=== PATIENT | female | born 1975 | race African-American/Black ===

== ENCOUNTER 2023-06-17 18:51 | Emergency (ER) | payer OTHER ==
[2023-06-17 19:30] VITALS: TEMP 97.8
--- NOTE | 2023-06-17 19:45 | ED ---
Altered Mental Status HPI - General Chief Complaint: Extremity Injury, Lower Stated Complaint: left side hip pain memory loss shaking Time Seen by Provider: 06/17/23 19:19 Source: patient, RN notes reviewed, old records reviewed Mode of arrival: ambulatory Limitations: no limitations - History of Present Illness Initial Comments: This is a 47-year-old female to the ER for evaluation today. [place] evaluation regards to confusion difficulty with mentation remembering things both of recent and distant past short-term and long-term memory difficulty with speech and cannot communicate communication. Patient has history of seizures and recently ran out of Nelly ZIMMERMAN Complaint: altered mental status -: month(s) Severity: moderate Consistency of Symptoms: waxing and waning, getting worse Context: history of similar presentation Associated Symptoms: denies other symptoms Treatments Prior to Arrival: oxygen - Related Data Previous Rx's Medication Instructions Recorded levETIRAcetam [Keppra] 500 mg PO Q12HR #60 tab 06/17/23 Allergies Allergy/AdvReac Type Severity Reaction Status Date / Time No Known Allergies Allergy Verified 06/17/23 20:13 Review of Systems ROS Statement: Those systems with pertinent positive or pertinent negative responses have been documented in the HPI. ROS Other: All systems not noted in ROS Statement are negative. Past Medical History Past Medical History: Asthma, Seizure Disorder Additional Past Medical History / Comment(s): seizure-like activity, no known 'actual' seizures, "blackouts", History of Any Multi-Drug Resistant Organisms: None Reported Past Surgical History: Coronary Bypass/CABG, Hernia Repair, Orthopedic Surgery Additional Past Surgical History / Comment(s): bunion removed, left ankle, left toe, rotator cuff repair, right shoulder, Past Psychological History: No Psychological Hx Reported Smoking Status: Former smoker Past Alcohol Use History: None Reported Past Drug Use History: None Reported General Exam Limitations: no limitations General appearance: alert, in no apparent distress Head exam: Present: atraumatic, normocephalic, normal inspection Eye exam: Present: normal appearance, PERRL, EOMI. Absent: scleral icterus, conjunctival injection, periorbital swelling ENT exam: Present: normal exam, mucous membranes moist Neck exam: Present: normal inspection. Absent: tenderness, meningismus, lymphadenopathy Respiratory exam: Present: normal lung sounds bilaterally. Absent: respiratory distress, wheezes, rales, rhonchi, stridor Cardiovascular Exam: Present: regular rate, normal rhythm, normal heart sounds. Absent: systolic murmur, diastolic murmur, rubs, gallop, clicks GI/Abdominal exam: Present: soft, normal bowel sounds. Absent: distended, tenderness, guarding, rebound, rigid Extremities exam: Present: normal inspection, full ROM, normal capillary refill. Absent: tenderness, pedal edema, joint swelling, calf tenderness Back exam: Present: normal inspection Neurological exam: Present: alert, oriented X3, CN II-XII intact Psychiatric exam: Present: normal affect, normal mood Skin exam: Present: warm, dry, intact, normal color. Absent: rash Course Vital Signs 06/17/23 06/17/23 18:58 22:27 Temperature 97.8 F Pulse Rate 98 70 Respiratory 18 16 Rate Blood Pressure 131/87 139/96 O2 Sat by Pulse 98 99 Oximetry - Reevaluation(s) Reevaluation #1: 06/17/23 20:08 Medical records reviewed Reevaluation #2: 06/17/23 20:08 Patient symptoms unchanged Reevaluation #3: 06/17/23 20:08 Patient informed of results questions answered Reevaluation #4: Was pt. sent in by a medical professional or institution (, PA, ENTRY LEVEL ACCOUNT REPRESENTATIVE, urgent care, hospital, or detention...) When possible be specific @ -no Did you speak to anyone other than the patient for history (EMS, parent, family, police, friend...)? What history was obtained from this source @ -no Did you review nursing and triage notes (agree or disagree)? Why? @ -agree Are old charts reviewed (outside hosp., previous admission, EMS record, old EKG, old radiological studies, urgent care reports/EKG's, detention records)? Report findings @ -yes Differential Diagnosis (chest pain, altered mental status, abdominal pain women, abdominal pain men, vaginal bleeding, weakness, fever, dyspnea, syncope, headache, dizziness, GI bleed, back pain, seizure, CVA, palpatations, mental h ealth, musculoskeletal)? @ -prior EKG interpreted by me (3pts min.). @ -yes X-rays interpreted by me (1pt min.). @ -no CT interpreted by me (1pt min.). @ -yes negative for acute disease U/S interpreted by me (1pt. min.). @ -no What testing was considered but not performed or refused? (CT, X-rays, U/S, labs)? Why? @ -none What meds were considered but not given or refused? Why? @ -none Did you discuss the management of the patient with other professionals (professionals i.e. , PA, ENTRY LEVEL ACCOUNT REPRESENTATIVE, lab, RT, psych nurse, social services coordinator, lifeguard, teacher, correctional officer captain, rehabilitation case coordinator)? Give summary @ -no Was smoking cessation discussed for >3mins.? @ -no Was critical care preformed (if so, how long)? @ -no Were there social determinants of health that impacted care today? How? (Homelessness, low income, unemployed, alcoholism, drug addiction, transportation, low edu. Level, literacy, decrease access to med. care, senior care, rehab)? @ -none Was there de-escalation of care discussed even if they declined (Discuss DNR or withdrawal of care, Hospice)? DNR status @ -no What co-morbidities impacted this encounter? (DM, HTN, Smoking, COPD, CAD, Cancer, CVA, ARF, Chemo, Hep., AIDS, mental health diagnosis, sleep apnea, morbid obesity)? @ -none Was patient admitted / discharged? Hospital course, mention meds given and route, prescriptions, significant lab abnormalities, going to OR and other p ertinent info. @ - 47 female for altered mental status with no acute cause found. Patient acting appropriate here in the ER and can be discharged home\\ Discharged Undiagnosed new problem with uncertain prognosis? @ -no Drug Therapy requiring intensive monitoring for toxicity (Heparin, Nitro, Insu trina, Cardizem)? @ -no Were any procedures done? @ -no Diagnosis/symptom? @ -Altered mental status Acute, or Chronic, or Acute on Chronic? @ -Acute Uncomplicated (without systemic symptoms) or Complicated (systemic symptoms)? @ -Complicated Side effects of treatment? @ -no Exacerbation, Progression, or Severe Exacerbation? @ -exacerbation Poses a threat to life or bodily function? How? (Chest pain, [place], [place], pneumonia, PE, COPD, DKA, ARF, appy, cholecystitis, CVA, Diverticulitis, Homicidal, Suicidal, threat to staff... and all critical care pts) @ -yes with altered mental status Reevaluation #5: Differential Altered Mental Status: Hypoglycemia, DKA, hypercapnia, ETOH, overdose, CO poisoning, trauma, myxedema coma, HTN encephalopathy, infection, encephalitis, psychosis, intercranial hemorrhage, hepatic encephalopathy, meningitis, CVA, this is not meant to be an all-inclusive list Medical Decision Making - Medical Decision Making 47 female for altered mental status with no acute cause found. Patient acting appropriate here in the ER and can be discharged home - Lab Data Result diagrams: 06/17/23 20:04 06/17/23 20:04 Lab Results 06/17/23 06/17/23 06/17/23 Range/Units 20:04 20:04 20:04 WBC 3.1 L (3.8-10.6) k/uL RBC 3.55 L (3.80-5.40) m/uL Hgb 10.4 L (11.4-16.0) gm/dL Hct 32.2 L (34.0-46.0) % MCV 90.8 (80.0-100.0) fL MCH 29.2 (25.0-35.0) pg MCHC 32.1 (31.0-37.0) g/dL RDW 13.5 (11.5-15.5) % Plt Count 300 (150-450) k/uL MPV 7.7 Neutrophils % 44 % Lymphocytes % 43 % Monocytes % 6 % Eosinophils % 3 % Basophils % 1 % Neutrophils # 1.4 (1.3-7.7) k/uL Lymphocytes # 1.3 (1.0-4.8) k/uL Monocytes # 0.2 (0-1.0) k/uL Eosinophils # 0.1 (0-0.7) k/uL Basophils # 0.0 (0-0.2) k/uL Sodium 141 (137-145) mmol/L Potassium 4.7 (3.5-5.1) mmol/L Chloride 110 H (98-107) mmol/L Carbon Dioxide 26 (22-30) mmol/L Anion Gap 5 mmol/L BUN 22 H (7-17) mg/dL Creatinine 0.81 (0.52-1.04) mg/dL Est GFR (CKD-EPI)AfAm >90 (>60 ml/min/1.73 sqM) Est GFR (CKD-EPI)NonAf 86 (>60 ml/min/1.73 sqM) Glucose 77 (74-99) mg/dL Plasma Lactic Acid [place] 0.9 (0.7-2.0) mmol/L Calcium 9.1 (8.4-10.2) mg/dL Phosphorus 4.3 (2.5-4.5) mg/dL Magnesium 1.9 (1.6-2.3) mg/dL Total Bilirubin 0.2 (0.2-1.3) mg/dL AST 20 (14-36) U/L ALT 14 (4-34) U/L Alkaline Phosphatase 55 (38-126) U/L Ammonia <9 (<30) umol/L Troponin I (0.000-0.034) ng/mL Total Protein 6.1 L (6.3-8.2) g/dL Albumin 3.7 (3.5-5.0) g/dL Urine Color Urine Appearance (Clear) Urine pH (5.0-8.0) Ur Specific [place] (1.001-1.035) Urine Protein (Negative) Urine Glucose (UA) (Negative) Urine Ketones (Negative) Urine Blood (Negative) Urine Nitrite (Negative) Urine Bilirubin (Negative) Urine Urobilinogen (<2.0) mg/dL Ur Leukocyte Esterase (Negative) Urine RBC (0-5) /hpf Urine WBC (0-5) /hpf Ur Squamous Epith Cells (0-4) /hpf Urine Bacteria (None) /hpf Urine Mucus (None) /hpf Salicylates <1.0 mg/dL Acetaminophen <10.0 ug/mL Serum Alcohol <10 mg/dL 06/17/23 06/17/23 Range/Units 20:04 20:04 WBC (3.8-10.6) k/uL RBC (3.80-5.40) m/uL Hgb (11.4-16.0) gm/dL Hct (34.0-46.0) % MCV (80.0-100.0) fL MCH (25.0-35.0) pg MCHC (31.0-37.0) g/dL RDW (11.5-15.5) % Plt Count (150-450) k/uL MPV Neutrophils % % Lymphocytes % % Monocytes % % Eosinophils % % Basophils % % Neutrophils # (1.3-7.7) k/uL Lymphocytes # (1.0-4.8) k/uL Monocytes # (0-1.0) k/uL Eosinophils # (0-0.7) k/uL Basophils # (0-0.2) k/uL Sodium (137-145) mmol/L Potassium (3.5-5.1) mmol/L Chloride (98-107) mmol/L Carbon Dioxide (22-30) mmol/L Anion Gap mmol/L BUN (7-17) mg/dL Creatinine (0.52-1.04) mg/dL Est GFR (CKD-EPI)AfAm (>60 ml/min/1.73 sqM) Est GFR (CKD-EPI)NonAf (>60 ml/min/1.73 sqM) Glucose (74-99) mg/dL Plasma Lactic Acid [place] (0.7-2.0) mmol/L Calcium (8.4-10.2) mg/dL Phosphorus (2.5-4.5) mg/dL Magnesium (1.6-2.3) mg/dL Total Bilirubin (0.2-1.3) mg/dL AST (14-36) U/L ALT (4-34) U/L Alkaline Phosphatase (38-126) U/L Ammonia (<30) umol/L Troponin I <0.012 (0.000-0.034) ng/mL Total Protein (6.3-8.2) g/dL Albumin (3.5-5.0) g/dL Urine Color Colorless Urine Appearance Cloudy H (Clear) Urine pH 5.5 (5.0-8.0) Ur Specific [place] 1.016 (1.001-1.035) Urine Protein Negative (Negative) Urine Glucose (UA) Negative (Negative) Urine Ketones Negative (Negative) Urine Blood Negative (Negative) Urine Nitrite Negative (Negative) Urine Bilirubin Negative (Negative) Urine Urobilinogen <2.0 (<2.0) mg/dL Ur Leukocyte Esterase Negative (Negative) Urine RBC <1 (0-5) /hpf Urine WBC 4 (0-5) /hpf Ur Squamous Epith Cells 4 (0-4) /hpf Urine Bacteria Many H (None) /hpf Urine Mucus Rare H (None) /hpf Salicylates mg/dL Acetaminophen ug/mL Serum Alcohol mg/dL - EKG Data -: EKG Interpreted by Me (EKG is sinus 73 ME 171 QRS 88 QTc 407) - Radiology Data Radiology results: report reviewed (CT brain is negative for acute disease), image reviewed Disposition Clinical Impression: Altered mental status Disposition: HOME SELF-CARE Condition: Good Instructions (If sedation given, give patient instructions): Altered Mental Status (ED) Prescriptions: levETIRAcetam [Keppra] 500 mg PO Q12HR #60 tab Is patient prescribed a controlled substance at d/c from ED?: No Referrals: Gilberto Valentin MD [STAFF PHYSICIAN] - 1-2 days Ventura Zeng DO [STAFF PHYSICIAN] - 1-2 days Time of Disposition: 21:30
[2023-06-17] MEDS: SODIUM CHLORIDE 0.9% 1,000 ML IV STA (20:14)
[2023-06-17 20:25] LABS: Basophils % (A) 1 %; Eosinophils # (A) 0.1 k/uL (0-0.7); Eosinophils % (A) 3 %; HCT 32.2 % (34.0-46.0); HGB 10.4 gm/dL (11.4-16.0); Lymphocytes # (A) 1.3 k/uL (1.0-4.8); Lymphocytes % (A) 43 %; MCH 29.2 pg (25.0-35.0); MCHC 32.1 g/dL (31.0-37.0); MCV 90.8 fL (80.0-100.0); Mean Platelet Volume 7.7; Monocytes # (A) 0.2 k/uL (0-1.0); Monocytes % (A) 6 %; Neutrophils # (A) 1.4 k/uL (1.3-7.7); Neutrophils % (A) 44 %; Platelet Count 300 k/uL (150-450); RBC 3.55 m/uL (3.80-5.40); RDW 13.5 % (11.5-15.5); WBC 3.1 k/uL (3.8-10.6)
[2023-06-17 20:33] LABS: Lactic Acid, Venous 0.9 mmol/L (0.7-2.0)
[2023-06-17 20:34] LABS: ALT 14 U/L (4-34); AST 20 U/L (14-36); Acetaminophen <10.0 ug/mL; African American GFR (CKD) >90 (>60 ml/min/1.73 sqM); Albumin 3.7 g/dL (3.5-5.0); Alcohol <10 mg/dL; Alkaline Phosphatase 55 U/L (38-126); Anion Gap 5 mmol/L; Blood Urea Nitrogen 22 mg/dL (7-17); Calcium 9.1 mg/dL (8.4-10.2); Carbon Dioxide 26 mmol/L (22-30); Chloride 110 mmol/L (98-107); Glucose 77 mg/dL (74-99); Magnesium 1.9 mg/dL (1.6-2.3); Non-African American GFR(CKD) 86 (>60 ml/min/1.73 sqM); Phosphorus 4.3 mg/dL (2.5-4.5); Potassium 4.7 mmol/L (3.5-5.1); Salicylate <1.0 mg/dL; Sodium 141 mmol/L (137-145); Total Bilirubin 0.2 mg/dL (0.2-1.3); Total Protein 6.1 g/dL (6.3-8.2)
--- NOTE | 2023-06-17 21:03 | CT ---
EXAMINATION TYPE: CT brain wo con CT DLP: 1126.7 mGycm, Automated exposure control for dose reduction was used. DATE OF EXAM: 06/17/2023 8:30 PM COMPARISON: None.. CLINICAL INDICATION:Female, 47 years old with history of weakness, SEIZURE ACTIVITY/ MEMORY LOSS TECHNIQUE: Brain: Axial CT images of the brain were obtained with coronal and sagittal reformats created and rev iewed. Contrast used: None. Oral contrast used: None. FINDINGS: Extra-axial spaces: No abnormal extra-axial fluid collections. Basilar cisterns are patent. Ventricular system: Within normal limits. Cerebral parenchyma: No increased attenuation to suggest acute intraparenchymal hemorrhage. The gra y-white matter interface appears maintained. No significant atrophy. White matter unremarkable by C T. Faint basal ganglia mineralization bilaterally. Cerebellum: No acute abnormality. Mass effect: No evidence of mass effect or midline shift. Intracranial vasculature: Unremarkable Soft tissues: No acute or concerning abnormality. Visualized orbits: Orbital contents appear grossly intact. Calvarium/osseous structures: No evidence of calvarial fracture. Paranasal sinuses and mastoid air cells: Clear. MRI is more sensitive for detecting acute processes such as infarct, and may be considered if clinica lly warranted. IMPRESSION: No acute intracranial CT abnormality.
[2023-06-17 21:52] LABS: Appearance,Urine Cloudy (Clear); Bacteria,Urine Many /hpf; Bilirubin,Urine Negative (Negative); Blood,Urine Negative (Negative); Color,Urine Colorless; Glucose,Urine (UA) Negative (Negative); Ketones,Urine Negative (Negative); Leukocyte Esterase,Urine Negative (Negative); Mucus,Urine Rare /hpf; Nitrite,Urine Negative (Negative); PH, Urine 5.5 (5.0-8.0); Protein,Urine Negative (Negative); RBC,Urine <1 /hpf (0-5); Specific Gravity,Urine 1.016 (1.001-1.035); Squamous Epithelial Cell,Urine 4 /hpf (0-4); Urobilinogen,Urine <2.0 mg/dL (<2.0); WBC,Urine 4 /hpf (0-5)
[2023-06-17] MEDS: levETIRAcetam IV 500 MG/5 ML VIAL IVP STA (22:40)
[2023-06-17] MEDS: KETOROLAC 15 MG/ML 1 ML VIAL IVP STA (22:40)
[2023-06-17] MEDS: HYDROmorphone 1 MG/ML 1 ML SYRINGE IVP STA (22:41)
[2023-06-17 23:27] VITALS: BP 139/96; PULSE 70; RESP 16
== END 2023-06-17 22:52 | disposition home or self-care (01) ==
LOC: EC 18:51
DX: R41.82 Altered mental status, unspecified (principal); Z87.891 Personal history of nicotine dependence
CPT/HCPCS: 36415; 93005; 80053; 82140; 83605; 83735; 84100; 84484; 85025; 81001; 80143; 80320; 80179; 70450; 99284; 96374; 96375 ×2; 96361 ×2; J1170; J1953; J1885

== ENCOUNTER 2023-08-17 11:00 | Emergency (ER) | payer OTHER ==
[2023-08-17 11:09] VITALS: TEMP 98.3
--- NOTE | 2023-08-17 11:19 | ED ---
General Adult HPI - General Chief complaint: Seizure Stated complaint: Seizure Time Seen by Provider: 08/17/23 11:04 Source: patient, family Mode of arrival: EMS - History of Present Illness Initial comments: Dictation was produced using [employer] dictation software. please excuse any grammatical, word or spelling errors. Chief Complaint: 47-year-old female presents emergency department seizure History of Present Illness: Patient is a 47-year-old female they recently moved here from [place]. She found out earlier today that one of her cousins . Patient became stressed out. Daughter at the bedside states that patient started to have seizure. Per EMS patient had multiple seizures. Patient allegedly takes Keppra. She states that she has been compliant with her medications. Has not found a neurologist since moving into town. EMS states that patient was not exactly postictal. The ROS documented in this emergency department record has been reviewed and co nfirmed by me. Those systems with pertinent positive or negative responses have been documented in the HPI. All other systems are other negative and/or noncontributory. - Related Data Previous Rx's Medication Instructions Recorded levETIRAcetam [Keppra] 500 mg PO Q12HR #60 tab 06/17/23 levETIRAcetam [Keppra] 500 mg PO Q12HR 14 Days #28 tab 08/17/23 Allergies Allergy/AdvReac Type Severity Reaction Status Date / Time Sulfa (Sulfonamide Allergy Unknown Unknown Verified 08/17/23 11:11 Antibiotics) Childhood Review of Systems ROS Statement: Those systems with pertinent positive or pertinent negative responses have been documented in the HPI. ROS Other: All systems not noted in ROS Statement are negative. Past Medical History Past Medical History: Asthma, Seizure Disorder Additional Past Medical History / Comment(s): seizure-like activity, no known 'a ctual' seizures, "blackouts", History of Any Multi-Drug Resistant Organisms: None Reported Past Surgical History: Coronary Bypass/CABG, Hernia Repair, Orthopedic Surgery Additional Past Surgical History / Comment(s): bunion removed, left ankle, left toe, rotator cuff repair, right shoulder, Past Psychological History: No Psychological Hx Reported Smoking Status: Former smoker Past Alcohol Use History: None Reported Past Drug Use History: None Reported General Exam - General Exam Comments Initial Comments: PHYSICAL EXAM: General Impression: Alert and oriented x3, not in acute distress HEENT: Normocephalic atraumatic, extra-ocular movements intact, pupils equal and reactive to light bilaterally, mucous membranes moist. Cardiovascular: Heart regular rate and rhythm Chest: Able to complete full sentences, no retractions, no tachypnea Abdomen: abdomen soft, non-tender, non-distended, no organomegaly Musculoskeletal: Pulses present and equal in all extremities, no peripheral edema Motor: no focal deficits noted Neurological: CN II-XII grossly intact, no focal motor or sensory deficits noted Skin: Intact with no visualized rashes Psych: Normal affect and mood Course Vital Signs 08/17/23 08/17/23 11:06 13:23 Temperature 98.3 F Pulse Rate 96 91 Respiratory 16 18 Rate Blood Pressure 110/74 99/83 O2 Sat by Pulse 100 99 Oximetry EKG Findings - EKG Comments: EKG Findings:: My EKG interpretation: Ventricular rate 94, sinus rhythm,. 179, cures 86, QTc 4 2. No [place] prolongation, no QTC prolongation, no ST or T-wave changes noted. Overall, this EKG is unremarkable Medical Decision Making - Medical Decision Making Was pt. sent in by a medical professional or institution (, PA, LOMBARDI DEVELOPER, urgent care, hospital, or longterm...) When possible be specific @ -No Did you speak to anyone other than the patient for history (EMS, parent, family, police, friend...)? What history was obtained from this source @ -No Did you review nursing and triage notes (agree or disagree)? Why? @ -I reviewed and agree with nursing and triage notes Were old charts reviewed (outside hosp., previous admission, EMS record, old EKG, old radiological studies, urgent care reports/EKG's, longterm records)? Report findings @ -No old charts were reviewed Differential Diagnosis (chest pain, altered mental status, abdominal pain women, abdominal pain men, vaginal bleeding, musculoskeletal, weakness, fever, dyspnea, syncope, headache, dizziness, GI bleed, back pain, seizure, CVA, palpatations, mental health)? @ -Differential Seizure: Recurrent seizure disorder, febrile seizure, alcohol withdrawal, stimulants, meningitis, encephalitis, intercranial hemorrhage, intracranial tumor, stroke, eclampsia, thyrotoxicosis, hypocalcemia, hyponatremia, hypernatremia, h ypomagnesemia, psychogenic, this is not meant to be an all-inclusive list. EKG interpreted by me (3pts min.). @ -See above X-rays interpreted by me (1pt min.). @ -None done CT interpreted by me (1pt min.). @ -None done U/S interpreted by me (1pt. min.). @ -None done What testing was considered but not performed or refused? (CT, X-rays, U/S, labs)? Why? @ -None What meds were considered but not given or refused? Why? @ -None Was smoking cessation discussed for >3mins.? @ -No Were there social determinants of health that impacted care today? How? (Homelessness, low income, unemployed, alcoholism, drug addiction, transportation, low edu. Level, literacy, decrease access to med. care, usp, rehab)? @ -No Was there de-escalation of care discussed even if they declined (Discuss DNR or withdrawal of care, Hospice)? DNR status @ -No What co-morbidities impacted this encounter? (DM, HTN, Smoking, COPD, CAD, Cancer, CVA, ARF, Chemo, Hep., AIDS, mental health diagnosis, sleep apnea, mo rbid obesity)? @ -None Was patient admitted / discharged? Hospital course, mention meds given and r oute, prescriptions, significant lab abnormalities, going to OR and other pertinent info. @ -47-year-old female presents to the emergency department after seizure. Patient states she recently moved up here from [place]. She has not establish care with a primary care doctor and or neurologist yet. Vital signs upon arrival are within acceptable limits. Patient complains of some soreness. She has her daughter with her. According to daughter patient has not seen a neurologist and months. She ran out of her Keppra medication months ago. She takes 500 mg twice daily. L laboratory evaluation obtained. Leukopenia of 2.8. Mild acidosis with bicarb of 18. Lactic acid of 2.8. Glucose is 69. Patient given dextrose Keppra IV push. Monitored in the emergency department for several hours. Patient agreeable for discharge given referral to primary care doctor. Patient given 2-week refill on her Keppra medications. Seizures likely secondary to medication noncompliance. Did you discuss the management of the patient with other professionals (professionals i.e. , PA, LOMBARDI DEVELOPER, lab, RT, psych nurse, executive secretary social welfare, military lawyer, teacher, forward air controller/air officer, case management associate)? Give summary @ -No Was critical care preformed (if so, how long)? @ -No Undiagnosed new problem with uncertain prognosis? @ -No Drug Therapy requiring intensive monitoring for toxicity (Heparin, Nitro, Insulin, Cardizem)? @ -No Were any procedures done? @ -No Diagnosis/symptom? Acute, or Chronic, or Acute on Chronic? Uncomplicated (without systemic symptoms) or Complicated (systemic symptoms)? @ -Seizure Side effects of treatment? @ -No Exacerbation, Progression, or Severe Exacerbation? @ -No Poses a threat to life or bodily function? How? (Chest pain, [place], [place], pneumonia, PE, COPD, DKA, ARF, appy, cholecystitis, CVA, Diverticulitis, Homicidal, Suicidal, threat to staff... and all critical care pts) @ -No - Lab Data Result diagrams: 08/17/23 12:08 08/17/23 12:08 Lab Results 08/17/23 08/17/23 08/17/23 Range/Units 12:08 12:08 12:08 WBC 2.8 L (3.8-10.6) k/uL RBC 4.00 (3.80-5.40) m/uL Hgb 11.5 (11.4-16.0) gm/dL Hct 36.0 (34.0-46.0) % MCV 90.0 (80.0-100.0) fL MCH 28.7 (25.0-35.0) pg MCHC 31.9 (31.0-37.0) g/dL RDW 13.5 (11.5-15.5) % Plt Count 374 (150-450) k/uL MPV 7.9 Neutrophils % 36 % Lymphocytes % 51 % Monocytes % 6 % Eosinophils % 2 % Basophils % 1 % Neutrophils # 1.0 L (1.3-7.7) k/uL Lymphocytes # 1.4 (1.0-4.8) k/uL Monocytes # 0.2 (0-1.0) k/uL Eosinophils # 0.1 (0-0.7) k/uL Basophils # 0.0 (0-0.2) k/uL Manual Slide Review Performed Sodium 143 (137-145) mmol/L Potassium 5.3 H (3.5-5.1) mmol/L Chloride 112 H (98-107) mmol/L Carbon Dioxide 18 L (22-30) mmol/L Anion Gap 13 mmol/L BUN 12 (7-17) mg/dL Creatinine 0.71 (0.52-1.04) mg/dL Est GFR (CKD-EPI)AfAm >90 (>60 ml/min/1.73 sqM) Est GFR (CKD-EPI)NonAf >90 (>60 ml/min/1.73 sqM) Glucose 69 L (74-99) mg/dL Plasma Lactic Acid [place] 2.8 H* (0.7-2.0) mmol/L Calcium 9.0 (8.4-10.2) mg/dL Magnesium 1.9 (1.6-2.3) mg/dL Total Bilirubin 0.6 (0.2-1.3) mg/dL AST 30 (14-36) U/L ALT 15 (4-34) U/L Alkaline Phosphatase 47 (38-126) U/L Total Protein 7.5 (6.3-8.2) g/dL Albumin 4.7 (3.5-5.0) g/dL Disposition Clinical Impression: Seizure Disposition: HOME SELF-CARE Condition: Good Instructions (If sedation given, give patient instructions): Recurrent Seizures in Adults (ED) Prescriptions: levETIRAcetam [Keppra] 500 mg PO Q12HR 14 Days #28 tab Is patient prescribed a controlled substance at d/c from ED?: No Referrals: Loer Adorno MD [STAFF PHYSICIAN] - 1-2 days Time of Disposition: 13:38
[2023-08-17 12:19] LABS: Basophils % (A) 1 %; Eosinophils # (A) 0.1 k/uL (0-0.7); Eosinophils % (A) 2 %; HGB 11.5 gm/dL (11.4-16.0); Lymphocytes # (A) 1.4 k/uL (1.0-4.8); Lymphocytes % (A) 51 %; MCH 28.7 pg (25.0-35.0); MCHC 31.9 g/dL (31.0-37.0); Mean Platelet Volume 7.9; Monocytes # (A) 0.2 k/uL (0-1.0); Monocytes % (A) 6 %; Neutrophils % (A) 36 %; Platelet Count 374 k/uL (150-450); RDW 13.5 % (11.5-15.5); WBC 2.8 k/uL (3.8-10.6)
[2023-08-17] MEDS: SODIUM CHLORIDE 0.9% 1,000 ML IV STA (12:19)
[2023-08-17 12:47] LABS: ALT 15 U/L (4-34); AST 30 U/L (14-36); African American GFR (CKD) >90 (>60 ml/min/1.73 sqM); Albumin 4.7 g/dL (3.5-5.0); Alkaline Phosphatase 47 U/L (38-126); Anion Gap 13 mmol/L; Blood Urea Nitrogen 12 mg/dL (7-17); Carbon Dioxide 18 mmol/L (22-30); Chloride 112 mmol/L (98-107); Glucose 69 mg/dL (74-99); Magnesium 1.9 mg/dL (1.6-2.3); Non-African American GFR(CKD) >90 (>60 ml/min/1.73 sqM); Sodium 143 mmol/L (137-145); Total Bilirubin 0.6 mg/dL (0.2-1.3); Total Protein 7.5 g/dL (6.3-8.2)
[2023-08-17 13:13] LABS: Potassium 5.3 mmol/L (3.5-5.1)
[2023-08-17 13:25] VITALS: RESP 18
[2023-08-17] MEDS: levETIRAcetam IV 500 MG/5 ML VIAL IVP STA (13:59)
[2023-08-17] MEDS: DEXTROSE 50% SYRINGE 50 ML IVP STA (14:06)
[2023-08-17] MEDS: MORPHINE SULFATE 4 MG/ML SYRINGE IVP STA (14:10)
[2023-08-17] MEDS: MORPHINE SULFATE 2 MG/ML SYRINGE IVP STA (14:17)
[2023-08-17 19:01] VITALS: BP 146/78; PULSE 80
== END 2023-08-17 19:01 | disposition home or self-care (01) ==
LOC: EC 11:00
DX: G40.909 Epilepsy, unspecified, not intractable, without status epilepticus (principal); Z88.2 Allergy status to sulfonamides; Z87.891 Personal history of nicotine dependence
CPT/HCPCS: 36415; 93005; 80053; 83605; 83735; 85025; 99284; 96374; 96375 ×2; 96361; J2270; J1953

== ENCOUNTER → 2024-01-11 | Outpatient (CLI) | payer OTHER ==
--- NOTE | 2024-01-29 13:41 | MM ---
Reason for Exam: Screening (asymptomatic). Last screening mammogram was performed 12 month(s) ago. Patient History: Menarche at age 11. First Full-Term at age 15. Last menstrual period: 12/25/2023 Risk Values: Pamela 5 year model risk: 1.1%. NCI Lifetime model risk: 8.7%. Prior Study Comparison: 10/19/2016 Bilateral Screening Mammogram, [place]. 11/16/2018 Bilateral Diagnostic Mammogram, [place]. 12/22/2022 Bilateral Screening Mammogram, [place]. Tissue Density: The breasts are almost entirely fatty. Findings: Analyzed By CAD. Right breast: There is no suspicious group of microcalcifications or new suspicious mass. Left breast: There is no suspicious group of microcalcifications or new suspicious mass. Overall Assessment: Negative, BI-RAD 1 Management: Screening Mammogram of both breasts in [address] [facility] will attempt to contact patient to return for supplemental views and ultrasound if indicated. Patient should continue monthly self-breast exams. A clinical breast exam by your physician is recommended on an annual basis. This exam should not preclude additional follow-up of suspicious palpable abnormalities. Note on Pamela scores and lifetime risk: 1. A Pamela score greater than 3% is considered moderate risk. If this is the case, consider specialist referral to assess eligibility for a risk reducing agent. 2. If overall lifetime risk for the development of breast cancer is 20% or higher, the patient may qualify for future screening with alternating mammogram and breast MRI. [facility], , 01/29/2024 1:38 PM. Electronically signed and approved by: Adelso Rivers DO
== END | disposition home or self-care (01) ==
LOC: RADMAMWWP 09:35
PROVIDERS: ATTEND Family Medicine
DX: Z12.31 Encounter for screening mammogram for malignant neoplasm of breast (principal); R92.313 Mammographic fatty tissue density, bilateral breasts
CPT/HCPCS: 77063; 77067

== ENCOUNTER → 2024-02-07 | Day surgery (SDC) | payer OTHER ==
[~2024-02-07] MED LIST: LIDOCAINE 1% INJ 10MG/ML (20 ML MDV) ONE; PROPOFOL 10 MG/ML 20 ML VIAL IV ONE
[2024-02-07] MEDS: IV FLUID CONTINUATION 1,000 ML IV ONE (11:02)
[2024-02-07 11:11] VITALS: TEMP 97.3
[2024-02-07] MEDS: LACTATED RINGERS 1,000 ML IV SCH (11:24)
--- NOTE | 2024-02-07 12:02 | P.PCN ---
Date of Procedure: 02/07/24 Procedure(s) Performed: BRIEF HISTORY: Patient is a 48-year-old, pleasant, -[place] female scheduled for an upper endoscopy as a part of evaluation of iron deficiency EMEA. She had a colonoscopy a couple of months ago that was unremarkable. Prior history of gastric bypass surgery with Maria Ines-en-Y anastomosis. She does complain of epigastric discomfort and intermittent nausea vomiting. PROCEDURE PERFORMED: Esophagogastroduodenoscopy biopsy. PREOPERATIVE DIAGNOSIS: Iron deficiency anemia and intermittent nausea vomiting. IV sedation per anesthesia. PROCEDURE: After informed consent was obtained, the patient was brought into the endoscopy unit. IV sedation was administered by Anesthesia under continuous monitoring. Initially the Olympus GIF-140 video endoscope was inserted into the mouth. Esophagus intubated without any difficulty. It was gradually advanced into the stomach. There was evidence of gastric bypass surgery with Maria Ines-en-Y anastomosis. The gastric pouch appeared normal. The anastomosis appeared normal. The scope was advanced into the jejunum. 60 cm visualized and appeared normal. Biopsies were done from this area. The scope at this time was withdrawn to the gastric folds that appeared normal.. The scope was then withdrawn into the esophagus. The GE junction was located at 39 cm from the incisors. Small sliding-type hiatal hernia noted the esophagus appeared normal. There were no erosions or ulcerations seen and the patient tolerated the procedure well. IMPRESSION: 1. Evidence of gastric bypass surgery with Maria Ines-en-Y anastomosis with no evidence of gastritis or anastomotic ulcer. 2. Small hiatal hernia. RECOMMENDATIONS: The findings of this examination were discussed with the patient as well as her family. She was advised to follow-up with the biopsy results. Continue to follow with Dr. Layton..
[2024-02-07 12:45] VITALS: BP 152/83; PULSE 65; RESP 16
== END ==
LOC: ORWHC2ENDO 09:47
PROVIDERS: ATTEND Internal Medicine Gastroenterology
DX: K44.9 Diaphragmatic hernia without obstruction or gangrene (principal); D50.9 Iron deficiency anemia, unspecified; J45.909 Unspecified asthma, uncomplicated; Z98.84 Bariatric surgery status; Z87.891 Personal history of nicotine dependence; Z79.899 Other long term (current) drug therapy; Z79.811 Long term (current) use of aromatase inhibitors
CPT/HCPCS: 81025; 43239; J2003; J2704; 88305

== ENCOUNTER 2024-03-08 16:44 | Inpatient (IN) | payer OTHER ==
--- NOTE | 2024-03-08 17:09 | ED ---
General Adult HPI - General Chief complaint: Chest Pain Stated complaint: Chest pain Time Seen by Provider: 03/08/24 16:45 Source: patient, EMS Mode of arrival: EMS - History of Present Illness Initial comments: Patient is a 48-year-old female the past medical history of seizures, presenting today for hypertension and chest pain. Patient states she was at her neurologist office where they measured her blood pressure multiple times and at 1 point it was 188/133. Patient began having pressure and sharp left-sided chest pain radiating down her left arm so she was directed to come to the emergency department. Patient also notes that since being here she has started to have a pressure-like headache that seems to radiate down to her jaw. Pain does not radiate to her back. She denies any history of prior ACS or stroke. Patient's mother from complications of kidney disease, thinks her father may have had a heart attack. Patient denies any changes in vision, numbness, focal weakness or slurred speech. She denies she does endorse some dizziness. - Related Data Home Medications Medication Instructions Recorded Confirmed Ferrous Sulfate [Feosol] 325 mg PO DAILY 02/06/24 03/08/24 OXcarbazepine [Trileptal] 300 mg PO BID 02/06/24 03/08/24 PARoxetine [Paxil] 10 mg PO DAILY 02/06/24 03/08/24 Multivitamins, Thera [Multivitamin 1 tab PO DAILY 03/08/24 03/08/24 (formulary)] Semaglutide [Wegovy] 0.5 mg SQ FR 03/08/24 03/08/24 traMADol HCL 50 mg PO Q6H PRN 03/08/24 03/08/24 Allergies Allergy/AdvReac Type Severity Reaction Status Date / Time cat dander AdvReac Unknown Verified 03/08/24 18:57 mold AdvReac Dyspnea Verified 03/08/24 18:57 Review of Systems ROS Statement: Those systems with pertinent positive or pertinent negative responses have been documented in the HPI. ROS Other: All systems not noted in ROS Statement are negative. Past Medical History Past Medical History: Asthma, Seizure Disorder Additional Past Medical History / Comment(s): seizure-like activity, no known 'actual' seizures, "blackouts", History of Any Multi-Drug Resistant Organisms: None Reported Past Surgical History: Coronary Bypass/CABG, Hernia Repair, Orthopedic Surgery Additional Past Surgical History / Comment(s): bunion removed, left ankle, left toe, rotator cuff repair, right shoulder, Past Psychological History: No Psychological Hx Reported Past Alcohol Use History: None Reported - Past Family History Mother Family Medical History: CVA/TIA, Diabetes Mellitus, Hypertension, Renal Disease Father Family Medical History: Liver Disease General Exam - General Exam Comments Initial Comments: PE: CONSTITUTIONAL: In no acute Distress, uncomfortable appearing, nontoxic SKIN: Warm, dry, no jaundice, hives or petechiae EYES: Pupils are equally round, extraocular movements intact without nystagmus, clear conjunctiva, non-icteric sclera HENT: Normocephalic, atraumatic, moist mucus membranes, oropharynx clear without exudates NECK: , Full range of motion, normal appearance PULMONARY: Clear to auscultation without wheezes, rhonchi, or rales, normal excursion, no accessory muscle use and no stridor CARDIOVASCULAR: Regular rate, rhythm, normal S1 and S2. No appreciated murmurs, rubs or gallops. Strong radial pulses with intact distal perfusion. No lower extremity edema GASTROINTESTINAL: Soft, active bowel sounds throughout, non-tender, non- distended, no palpable masses, no rebound or guarding. No hepatosplenomegaly MUSCULOSKELETAL: Extremities have no gross deformity, no edema, redness, or swelling. No calf swelling NEUROLOGIC:_a/o x 3, GCS 15, normal mentation and speech. Moves all extremities x 4 without motor or sensory deficit PSYCHIATRIC:_normal mood and affect, thought process is clear and linear Course Vital Signs 03/08/24 03/08/24 03/08/24 16:45 17:58 19:32 Temperature 98.4 F 97.7 F Pulse Rate 79 87 80 Respiratory 17 18 16 Rate Blood Pressure 156/109 144/108 155/108 O2 Sat by Pulse 96 97 97 Oximetry 03/08/24 03/08/24 03/08/24 20:27 21:03 21:55 Temperature Pulse Rate 81 86 90 Respiratory Rate Blood Pressure 134/99 140/95 153/120 O2 Sat by Pulse 99 Oximetry 03/08/24 03/08/24 03/08/24 22:06 22:25 23:30 Temperature 98.1 F Pulse Rate 85 86 Respiratory 16 Rate Blood Pressure 147/107 155/103 143/98 O2 Sat by Pulse 96 Oximetry 03/09/24 03/09/24 03/09/24 00:19 01:40 02:21 Temperature 97.3 F L Pulse Rate 71 71 Respiratory 16 14 Rate Blood Pressure 130/109 159/119 156/111 O2 Sat by Pulse 96 98 Oximetry 03/09/24 03/09/24 03/09/24 02:30 03:30 05:00 Temperature Pulse Rate 74 68 69 Respiratory Rate Blood Pressure 135/98 129/101 134/107 O2 Sat by Pulse 97 97 96 Oximetry 03/09/24 03/09/24 03/09/24 05:30 06:00 06:30 Temperature Pulse Rate 69 72 71 Respiratory Rate Blood Pressure 113/83 131/95 115/84 O2 Sat by Pulse 97 Oximetry 03/09/24 03/09/24 03/09/24 08:18 09:28 10:40 Temperature 98.1 F Pulse Rate 66 79 72 Respiratory 18 18 18 Rate Blood Pressure 132/104 135/104 141/113 O2 Sat by Pulse 98 98 97 Oximetry EKG Findings - EKG Comments: EKG Findings:: Sinus rhythm, rate 77 bpm VT interval 158 ms QRS duration 87 ms QT/QTc 379/411 ms, normal axis, no ST elevations or depressions, no T wave inversions, no STEMI. Repeat EKG performed due to persistent chest pain, showed sinus rhythm, rate 75 bpm VT interval 162 ms QRS duration 85 ms QT/QTc 386/4 to 50 ms, normal axis, some T wave flattening in lead V2, V3 but no new ST elevations or depressions when compared to prior Medical Decision Making - Medical Decision Making Was pt. sent in by a medical professional or institution (, PA, TRAINER, urgent care, hospital, or jail...) When possible be specific @Patient was sent in by her neurologist Did you speak to anyone other than the patient for history (EMS, parent, family, police, friend...)? What history was obtained from this source @ -No Did you review nursing and triage notes (agree or disagree)? Why? @ -I reviewed nursing and triage notes Were old charts reviewed (outside hosp., previous admission, EMS record, old EKG, old radiological studies, urgent care reports/EKG's, jail records)? Report findings @ -Medical records reviewed Differential Diagnosis (chest pain, altered mental status, abdominal pain women, abdominal pain men, vaginal bleeding, weakness, fever, dyspnea, syncope, headache, dizziness, GI bleed, back pain, seizure, CVA, palpatations, mental health, musculoskeletal)? @Differential Chest Pain: Stable Angina, Unstable Angina, STEMI, NSTEMI Aortic Dissection, pericarditis, pleurisy, chostochondirits, Pneumothorax, Musculoskeletal, Esophageal Spasm GERD, Cholecystitis, Pancreatitis, Zoster, this is not meant to be an all- inclusive list. EKG interpreted by me (3pts min.). @ -As above X-rays interpreted by me (1pt min.). @Chest x-ray shows no cardiomegaly, consolidations or pleural effusions CT interpreted by me (1pt min.). @CT thorax does not show evidence of dissection or PE, CT brain does not show any evidence of hemorrhage or mass effect U/S interpreted by me (1pt. min.). @ -None done What testing was considered but not performed or refused? (CT, X-rays, U/S, labs)? Why? @ -None What meds were considered but not given or refused? Why? @ -Dilaudid was considered for further pain control however patient again endorsed further itching with Dilaudid so this was withheld Did you discuss the management of the patient with other professionals (professionals i.e. , PA, TRAINER, lab, RT, psych nurse, administrator social welfare, display carver, teacher, corporate officer, behavioral health case manager)? Give summary @ -No Was smoking cessation discussed for >3mins.? @ -No Was critical care preformed (if so, how long)? @Yes 35 minutes Were there social determinants of health that impacted care today? How? (Homelessness, low income, unemployed, alcoholism, drug addiction, transportation, low edu. Level, literacy, decrease access to med. care, nursing home, rehab)? @ -No Was there de-escalation of care discussed even if they declined (Discuss DNR or withdrawal of care, Hospice)? @ -No What co-morbidities impacted this encounter? (DM, HTN, Smoking, COPD, CAD, Cancer, CVA, ARF, Chemo, Hep., AIDS, mental health diagnosis, sleep apnea, morbid obesity)? Seizure disorder Was patient admitted / discharged? Hospital course, mention meds given and route, prescriptions, significant lab abnormalities, going to OR and other pertinent info. @Admission- Patient is a 48-year-old female with a past medical history of seizure disorder presenting today for chest pain and headache as well as hypertension noted while patient was at her neurologist office. Complete history and physical exam performed. Patient's initial diastolic pressure was above 110 however on repeat during my assessment blood systolic blood pressure 156 diastolic 105. Will continue to monitor before administering antihypertensives, if raises above 180/110, will consider labetolol. Due to headache endorsed with onset of hypertension a CT brain will be performed, of note headache did begin while patient was in the emergency department so she is within the window to assess for intracranial hemorrhage with CT brain alone. Additionally cardiac labs ordered. CT dissection study was considered however patient's pain does not radiate to her back and she has equal pulses in all 4 extremities. Patient will be given sublingual nitroglycerin as well as morphine. She is agreeable plan of care. Labs and imaging reviewed. Glucose of 54, troponin less than 0.012. Otherwise grossly within normal limits. Additional abnormal values not concerning for acute pathology related to presenting complaint. Amp of D50 ordered. Patient endorsing slight improvement with sublingual nitroglycerin, patient states morphine did not help and she had itching with morphine ministration.. Request Dilaudid. We will use IV nitroglycerin and consider dilaudid. Plan for admission due to HTN and high risk chest pain. Pt agreeable with POC. Patient's pain did not improve further with nitroglycerin infusion so Dilaudid was ultimately ordered. Pt discussed with JENNIFER De La Cruz, kindly accepts pt for admission. While pending placement, boarding in the ER patient continued having left-sided chest pain. It did improve down to a 6 out of 10 with Dilaudid however with Dil audid and morphine administration patient continued to have itching so further Dilaudid was withheld. Nitro drip does not appear to be improving her pain. Ordered repeat EKG, at this point due to persistent pain we will also obtain a dissection study to rule out dissection. I reviewed CT dissection study I do not see evidence of dissection. Pain did improve somewhat with undiagnosed new problem with uncertain prognosis? @ -No Drug Therapy requiring intensive monitoring for toxicity (Heparin, Nitro, Insulin, Cardizem)? @ -No Were any procedures done? @ -No Diagnosis/symptom? Hypertensive urgency, chest pain Acute, or Chronic, or Acute on Chronic? @Acute Uncomplicated (without systemic symptoms) or Complicated (systemic symptoms)? @Complicated Side effects of treatment? @ -No Exacerbation, Progression, or Severe Exacerbation? @ -No Poses a threat to life or bodily function? How? (Chest pain, [place], [place], pneumonia, PE, COPD, DKA, ARF, appy, cholecystitis, CVA, Diverticulitis, Homicidal, Suicidal, threat to staff... and all critical care pts) @ -yes - Lab Data Result diagrams: 03/10/24 06:35 03/10/24 06:35 Lab Results 03/08/24 03/08/24 03/08/24 Range/Units 17:12 17:12 17:56 WBC 4.7 (3.8-10.6) k/uL RBC 4.61 (3.80-5.40) m/uL Hgb 13.4 (11.4-16.0) gm/dL Hct 41.5 (34.0-46.0) % MCV 89.9 (80.0-100.0) fL MCH 29.0 (25.0-35.0) pg MCHC 32.2 (31.0-37.0) g/dL RDW 13.4 (11.5-15.5) % Plt Count 291 (150-450) k/uL MPV 7.6 Neutrophils % 56 % Lymphocytes % 34 % Monocytes % 6 % Eosinophils % 3 % Basophils % 0 % Neutrophils # 2.6 (1.3-7.7) k/uL Lymphocytes # 1.6 (1.0-4.8) k/uL Monocytes # 0.3 (0-1.0) k/uL Eosinophils # 0.1 (0-0.7) k/uL Basophils # 0.0 (0-0.2) k/uL PT 10.1 (10.0-12.5) sec INR 0.9 (<1.2) APTT 22.9 (22.0-30.0) sec Sodium (137-145) mmol/L Potassium (3.5-5.1) mmol/L Chloride (98-107) mmol/L Carbon Dioxide (22-30) mmol/L Anion Gap mmol/L BUN (7-17) mg/dL Creatinine (0.52-1.04) mg/dL Est GFR (CKD-EPI)AfAm (>60 ml/min/1.73 sqM) Est GFR (CKD-EPI)NonAf (>60 ml/min/1.73 sqM) Glucose (74-99) mg/dL Calcium (8.4-10.2) mg/dL Magnesium (1.6-2.3) mg/dL Total Bilirubin (0.2-1.3) mg/dL AST (14-36) U/L ALT (4-34) U/L Alkaline Phosphatase (38-126) U/L Troponin I <0.012 (0.000-0.034) ng/mL NT-Pro-B Natriuret Pep pg/mL Total Protein (6.3-8.2) g/dL Albumin (3.5-5.0) g/dL Lipase (23-300) U/L 03/08/24 Range/Units 17:56 WBC (3.8-10.6) k/uL RBC (3.80-5.40) m/uL Hgb (11.4-16.0) gm/dL Hct (34.0-46.0) % MCV (80.0-100.0) fL MCH (25.0-35.0) pg MCHC (31.0-37.0) g/dL RDW (11.5-15.5) % Plt Count (150-450) k/uL MPV Neutrophils % % Lymphocytes % % Monocytes % % Eosinophils % % Basophils % % Neutrophils # (1.3-7.7) k/uL Lymphocytes # (1.0-4.8) k/uL Monocytes # (0-1.0) k/uL Eosinophils # (0-0.7) k/uL Basophils # (0-0.2) k/uL PT (10.0-12.5) sec INR (<1.2) APTT (22.0-30.0) sec Sodium 136 L (137-145) mmol/L Potassium 4.7 (3.5-5.1) mmol/L Chloride 101 (98-107) mmol/L Carbon Dioxide 23 (22-30) mmol/L Anion Gap 12 mmol/L BUN 13 (7-17) mg/dL Creatinine 0.79 (0.52-1.04) mg/dL Est GFR (CKD-EPI)AfAm >90 (>60 ml/min/1.73 sqM) Est GFR (CKD-EPI)NonAf 88 (>60 ml/min/1.73 sqM) Glucose 54 L (74-99) mg/dL Calcium 9.4 (8.4-10.2) mg/dL Magnesium 1.8 (1.6-2.3) mg/dL Total Bilirubin 0.7 (0.2-1.3) mg/dL AST 26 (14-36) U/L ALT 13 (4-34) U/L Alkaline Phosphatase 55 (38-126) U/L Troponin I (0.000-0.034) ng/mL NT-Pro-B Natriuret Pep 89 pg/mL Total Protein 7.0 (6.3-8.2) g/dL Albumin 4.3 (3.5-5.0) g/dL Lipase 58 (23-300) U/L Disposition Clinical Impression: Chest pain, Hypertensive urgency Disposition: ADMITTED IP TO THIS HOSP Condition: Stable
[2024-03-08 17:27] LABS: Basophils % (A) 0 %; Eosinophils # (A) 0.1 k/uL (0-0.7); Eosinophils % (A) 3 %; HCT 41.5 % (34.0-46.0); HGB 13.4 gm/dL (11.4-16.0); Lymphocytes # (A) 1.6 k/uL (1.0-4.8); Lymphocytes % (A) 34 %; MCHC 32.2 g/dL (31.0-37.0); MCV 89.9 fL (80.0-100.0); Mean Platelet Volume 7.6; Monocytes # (A) 0.3 k/uL (0-1.0); Monocytes % (A) 6 %; Neutrophils # (A) 2.6 k/uL (1.3-7.7); Neutrophils % (A) 56 %; Platelet Count 291 k/uL (150-450); RBC 4.61 m/uL (3.80-5.40); RDW 13.4 % (11.5-15.5); WBC 4.7 k/uL (3.8-10.6)
[2024-03-08 17:36] LABS: INR 0.9 (<1.2); Partial Thromboplastin Time 22.9 sec (22.0-30.0); Prothrombin Time 10.1 sec (10.0-12.5)
[2024-03-08] MEDS: ASPIRIN 81 MG PO STA (17:43)
[2024-03-08] MEDS: ACETAMINOPHEN TAB 500 MG TAB PO STA (17:43)
[2024-03-08] MEDS: ONDANSETRON 4 MG/2 ML VIAL IVP STA (17:44)
--- NOTE | 2024-03-08 17:45 | XR ---
EXAMINATION TYPE: XR chest 2V DATE OF EXAM: 03/08/2024 5:38 PM COMPARISON: None CLINICAL INDICATION: Female, 48 years old with history of Chest Pain; TECHNIQUE: XR chest 2V Frontal and lateral views of the chest. FINDINGS: Lungs/Pleura: There is no evidence of pleural effusion, focal consolidation, or pneumothorax. Pulmonary vascularity: Unremarkable. Heart/mediastinum: Cardiomediastinal silhouette is unremarkable. Musculoskeletal: No acute osseous pathology. IMPRESSION: No acute cardiopulmonary disease/process. [facility], , 03/08/2024 5:43 PM
--- NOTE | 2024-03-08 17:46 | CT ---
EXAMINATION TYPE: CT brain wo con DATE OF EXAM: 03/08/2024 5:34 PM COMPARISON: 06/17/2023 CLINICAL INDICATION: Female, 48 years old with history of MCMULLEN, HTN, headache, dizziness, htn TECHNIQUE: Brain: Axial CT images of the brain were obtained with coronal and sagittal reformats created and rev iewed. Contrast used: None. Oral contrast used: None. CT DLP: 1138.9 mGycm, Automated exposure control for dose reduction was used. FINDINGS: Brain: Extra-axial spaces: No abnormal extra-axial fluid collections. Ventricular system: Within normal limits Cerebral parenchyma: No acute intraparenchymal hemorrhage or mass effect. The faria-white junction is well differentiated. Cerebellum: Unremarkable. Mass effect: No evidence of midline shift. Intracranial vasculature: unremarkable Soft tissues: Normal. Calvarium/osseous structures: No depressed skull fracture. Paranasal sinuses and mastoid air cells: Mild scattered paranasal sinus disease. Visualized orbits: Orbital contents are intact. IMPRESSION: No acute intracranial process. [facility], , 03/08/2024 5:44 PM
[2024-03-08] MEDS: NITROGLYCERIN SL TABS 0.4 MG TAB SUBLINGUAL STA (17:49)
[2024-03-08] MEDS: MORPHINE SULFATE 4 MG/ML SYRINGE IV STA (17:51)
[2024-03-08] MEDS: SODIUM CHLORIDE 0.9% 1,000 ML IV STA (17:53)
[2024-03-08 18:25] LABS: ALT 13 U/L (4-34); AST 26 U/L (14-36); African American GFR (CKD) >90 (>60 ml/min/1.73 sqM); Albumin 4.3 g/dL (3.5-5.0); Alkaline Phosphatase 55 U/L (38-126); Anion Gap 12 mmol/L; Blood Urea Nitrogen 13 mg/dL (7-17); Calcium 9.4 mg/dL (8.4-10.2); Carbon Dioxide 23 mmol/L (22-30); Chloride 101 mmol/L (98-107); Glucose 54 mg/dL (74-99); Lipase 58 U/L (23-300); Magnesium 1.8 mg/dL (1.6-2.3); Non-African American GFR(CKD) 88 (>60 ml/min/1.73 sqM); Potassium 4.7 mmol/L (3.5-5.1); Sodium 136 mmol/L (137-145); Total Bilirubin 0.7 mg/dL (0.2-1.3)
[2024-03-08 18:34] LABS: NT-Pro-B-Type Natriuretic Pept 89 pg/mL
[2024-03-08] MEDS: DEXTROSE 50% SYRINGE 50 ML IVP STA (18:49)
[2024-03-08] MEDS: diphenhydrAMINE 50 MG/ML 1 ML VIAL IVP STA ×2 (18:52→20:56)
[2024-03-08] MEDS: NITROGLYCERIN-D5W PMX 50 MG in DEXTROSE/WATER 1 250ML.BAG IV ONE (19:00)
[2024-03-08] MEDS ORDERED: NALOXONE 0.4 MG/ML 1 ML VIAL IV PRN (20:09)
[2024-03-08] MEDS ORDERED: CALCIUM CARBONATE 500 MG CHEWABLE PO PRN (20:09)
[2024-03-08] MEDS: SODIUM CHLORIDE 0.9% 1,000 ML IV SCH (20:23)
[2024-03-08] MEDS: FAMOTIDINE 20 MG TAB PO SCH (20:29)
[2024-03-08] MEDS: HYDROmorphone 1 MG/ML 1 ML SYRINGE IVP STA (20:29)
[2024-03-08 20:30] LABS: Glucose,Whole Blood 64 mg/dL (70-110)
[2024-03-08] MEDS: ONDANSETRON 4 MG/2 ML VIAL IVP PRN (20:51)
[2024-03-08] MEDS: FAMOTIDINE 20 MG/2 ML VIAL IV STA (21:08)
[2024-03-08] MEDS ORDERED: traMADol 50 MG TAB PO PRN (22:44)
[2024-03-08 23:03] LABS: Glucose,Whole Blood 72 mg/dL (70-110)
[2024-03-08] MEDS: OXcarbazepine 300 MG TAB PO SCH (23:28)
[2024-03-08] MEDS: METOPROLOL TARTRATE 25 MG TAB PO STA (23:29)
[2024-03-08] MEDS: HEPARIN SODIUM,PORCINE 5,000 UNIT/ML 1 ML VIAL SQ SCH (23:31)
[2024-03-09] MEDS: NITROGLYCERIN OINT 1 INCH/GM PACKET TOPICAL PRN (00:17)
[2024-03-09] MEDS: traMADol 50 MG TAB PO PRN (00:49)
--- NOTE | 2024-03-09 02:49 | CT ---
EXAM: CT Angiography Abdomen and Pelvis With Intravenous Contrast CLINICAL HISTORY: CT Reason: HTN, chest pain rad down L arm TECHNIQUE: Axial computed tomographic angiography images of the abdomen and pelvis with intravenous contrast. CTDI is 38.09 mGy and DLP is 663 mGy-cm. This CT exam was performed using one or more of the following dose reduction techniques: automated exposure control, adjustment of the mA and/or kV according to patient size, and/or use of iterative reconstruction technique. MIP reconstructed images were created and reviewed. COMPARISON: No relevant prior studies available. FINDINGS: VASCULATURE: Aorta: No acute findings. No abdominal aortic aneurysm. No dissection. Celiac trunk and mesenteric arteries: No acute findings. No occlusion or significant stenosis. Renal arteries: No acute findings. No occlusion or significant stenosis. Iliac arteries: Trace amount of calcified plaque in the common iliac arteries bilaterally with less than 20% stenosis bilaterally. Lung bases: Unremarkable. No mass. No consolidation. ABDOMEN: Liver: Unremarkable. No mass. Gallbladder and bile ducts: Unremarkable. No calcified stones. No ductal dilation. Pancreas: Unremarkable. No ductal dilation. No mass. Spleen: Unremarkable. No splenomegaly. Adrenals: Unremarkable. No mass. Kidneys and ureters: Unremarkable. No hydronephrosis. No solid mass. Stomach and bowel: Clips and gail from previous gastric bypass surgery. Bowel loops are nondilated. No acute inflammatory changes are seen involving the bowel. No mucosal thickening. PELVIS: Appendix: No findings to suggest acute appendicitis. Bladder: Unremarkable. No mass. Reproductive: Unremarkable as visualized. ABDOMEN and PELVIS: Intraperitoneal space: Unremarkable. No significant fluid collection. No free air. Bones/joints: Mild degenerative changes in the lumbar spine. No acute fracture or subluxation is seen. Soft tissues: Unremarkable. Lymph nodes: Unremarkable. No enlarged lymph nodes. IMPRESSION: Clips and gail from previous gastric bypass surgery. Bowel loops are nondilated. No acute inflammatory changes are seen involving the bowel. EXAM: CT Angiography Chest Without and With Intravenous Contrast CLINICAL HISTORY: CT Reason: HTN, chest pain rad down L arm TECHNIQUE: Axial computed tomographic angiography images of the chest without and with intravenous contrast. CTDI is 38.09 mGy and DLP is 663 mGy-cm. This CT exam was performed using one or more of the following dose reduction techniques: automated exposure control, adjustment of the mA and/or kV according to patient size, and/or use of iterative reconstruction technique. MIP reconstructed images were created and reviewed. COMPARISON: No relevant prior studies available. FINDINGS: Pulmonary arteries: Unremarkable. No pulmonary embolism. Aorta: The thoracic aorta is nondilated. There is no aneurysm or dissection. Lungs: Unremarkable. No mass. No consolidation. Pleural space: Unremarkable. No significant effusion. No pneumothorax. Heart: Unremarkable. No cardiomegaly. No significant pericardial effusion. No evidence of RV dysfunction. Bones/joints: Mild degenerative changes in the lower thoracic spine. No acute fracture or bone lesion is seen. No dislocation. Soft tissues: Unremarkable. Lymph nodes: Unremarkable. No enlarged lymph nodes. IMPRESSION: The thoracic aorta is nondilated. There is no aneurysm or dissection. The pulmonary arterial tree is well opacified with contrast. No pulmonary embolism is identified.
[2024-03-09] MEDS: HYDROmorphone 0.5 MG/0.5 ML SYRINGE IVP STA (03:13)
[2024-03-09] MEDS: NICOTINE 14MG/24HR PATCH TRANSDERM STA (05:18)
[2024-03-09] MEDS: MULTIVITAMINS, THERA 1 EACH TAB PO SCH (08:25)
[2024-03-09] MEDS: PARoxetine 10 MG TAB PO SCH (08:26)
[2024-03-09] MEDS: FERROUS SULFATE 325 MG TAB PO SCH (08:26)
--- NOTE | 2024-03-09 11:11 | P.CRDCN ---
History of Present Illness Consult date: 03/09/24 History of present illness: HISTORY OF PRESENTING ILLNESS: Patient is a 48-year-old -[place] female with past medical history of seizure disorder, chronic back pain. Prior to coming to the hospital she was at her neurology office because of her acute exacerbation of back pain after bending forward and working on the ground. In the office she was told that her blood pressure was significantly elevated for which she was instructed to come to the hospital. She has also been experiencing substernal chest heaviness and pressure-like sensation for last 1 day. She denies any prior cardiovascular history She denies any history of marijuana use or IV alcohol use or cigarette smoking. She does use nicotine vaping. She does report family history of coronary artery disease and stroke in mother in 60s Admission Cardiac Labs: Troponin x 3 were negative, BUN is 13, creatinine 0.79 Hb 13.4 Admission testing: EKG shows normal sinus rhythm with no significant ST-T wave changes concerning for acute ischemia CTA chest did not show any evidence of dissection or pulmonary embolism Chest x-ray does not show signs of acute pulmonary congestion or consolidation REVIEW OF SYSTEMS: 14 point review of system is negative except what is mentioned above in HPI. PHYSICAL EXAMINATION: Neck: Brisk carotid upstroke, no jugular venous distention. Lungs: Clear to auscultation. Heart: Regular rate and rhythm, S1-S2, , no murmur or rub. Abdomen: Soft nontender, positive bowel sounds. Extremities: No edema, intact distal pulses. Neuro: Alert, oritented, no focal deficits. Detailed neuro exam was not performed. ASSESSMENT: # Substernal chest pressure, likely related to elevated blood pressure which is related to back pain. ACS has been ruled out. # Essential hypertension # Obesity on Mounjaro # Back pain # Tobacco vaping PLAN: Plan is to offer pain control, monitor hemodynamics and see if patient symptoms of chest pressure resolved with blood pressure control. Will obtain an echocardiogram and stress test after discharge. Start aspirin 81 mg, metoprolol succinate 12.5 mg daily, amlodipine 5 mg daily Obtain lipid panel HbA1c and TSH level Obtain echocardiogram Lexiscan nuclear stress test on Monday Lidocaine patch for the back Recommend evaluation by orthopedic /park services specialist. As per primary team discretion Stop tobacco vaping Jose Johnson MD, FACC, RPVI Thank you for allowing [facility] to participate in this patient's care. Feel free to reach out in case of any followup questions. Past Medical History Past Medical History: Asthma, Seizure Disorder Additional Past Medical History / Comment(s): seizure-like activity, no known 'actual' seizures, "blackouts", History of Any Multi-Drug Resistant Organisms: None Reported Past Surgical History: Coronary Bypass/CABG, Hernia Repair, Orthopedic Surgery Additional Past Surgical History / Comment(s): bunion removed, left ankle, left toe, rotator cuff repair, right shoulder, Past Psychological History: No Psychological Hx Reported Past Alcohol Use History: None Reported Medications and Allergies Home Medications Medication Instructions Recorded Confirmed Type Ferrous Sulfate [Feosol] 325 mg PO DAILY 02/06/24 03/08/24 History OXcarbazepine [Trileptal] 300 mg PO BID 02/06/24 03/08/24 History PARoxetine [Paxil] 10 mg PO DAILY 02/06/24 03/08/24 History Multivitamins, Thera [Multivitamin 1 tab PO DAILY 03/08/24 03/08/24 History (formulary)] Semaglutide [Wegovy] 0.5 mg SQ FR 03/08/24 03/08/24 History traMADol HCL 50 mg PO Q6H PRN 03/08/24 03/08/24 History Allergies Allergy/AdvReac Type Severity Reaction Status Date / Time cat dander AdvReac Unknown Verified 03/08/24 18:57 mold AdvReac Dyspnea Verified 03/08/24 18:57 Physical Exam Vitals: Vital Signs Temp Pulse Resp BP Pulse Ox 03/09/24 10:40 72 18 141/113 97 03/09/24 09:28 79 18 135/104 98 03/09/24 08:18 98.1 F 66 18 132/104 98 03/09/24 06:30 71 115/84 03/09/24 06:00 72 131/95 03/09/24 05:30 69 113/83 97 03/09/24 05:00 69 134/107 96 03/09/24 03:30 68 129/101 97 03/09/24 02:30 74 135/98 97 03/09/24 02:21 156/111 03/09/24 01:40 97.3 F L 71 14 159/119 98 03/09/24 00:19 71 16 130/109 96 03/08/24 23:30 86 143/98 03/08/24 22:25 98.1 F 85 16 155/103 96 03/08/24 22:06 147/107 03/08/24 21:55 90 153/120 03/08/24 21:03 86 140/95 03/08/24 20:27 81 134/99 99 03/08/24 19:32 97.7 F 80 16 155/108 97 03/08/24 17:58 87 18 144/108 97 03/08/24 16:45 98.4 F 79 17 156/109 96 Intake and Output 03/08/24 03/09/24 03/09/24 22:59 06:59 14:59 Intake Total 6.5 Balance 6.5 Intake: Intake, IV Titration 6.5 Amount Nitroglycerin-D5w Pmx 50 6.5 mg In Dextrose/Water 1 250ml.bag @ 5 MCG/MIN 1.5 mls/hr IV .Q24H ONE Rx#: [id number] Other: Weight 81.647 kg Results 03/08/24 17:12 03/08/24 17:56 Cardiac Enzymes 03/08/24 03/08/24 03/08/24 Range/Units 17:56 17:56 21:21 AST 26 (14-36) U/L Troponin I <0.012 <0.012 (0.000-0.034) ng/mL 03/09/24 Range/Units 00:40 AST (14-36) U/L Troponin I <0.012 (0.000-0.034) ng/mL Coagulation 03/08/24 Range/Units 17:12 PT 10.1 (10.0-12.5) sec APTT 22.9 (22.0-30.0) sec CBC 03/08/24 Range/Units 17:12 WBC 4.7 (3.8-10.6) k/uL RBC 4.61 (3.80-5.40) m/uL Hgb 13.4 (11.4-16.0) gm/dL Hct 41.5 (34.0-46.0) % Plt Count 291 (150-450) k/uL Comprehensive Metabolic Panel 03/08/24 Range/Units 17:56 Sodium 136 L (137-145) mmol/L Potassium 4.7 (3.5-5.1) mmol/L Chloride 101 (98-107) mmol/L Carbon Dioxide 23 (22-30) mmol/L BUN 13 (7-17) mg/dL Creatinine 0.79 (0.52-1.04) mg/dL Glucose 54 L (74-99) mg/dL Calcium 9.4 (8.4-10.2) mg/dL AST 26 (14-36) U/L ALT 13 (4-34) U/L Alkaline Phosphatase 55 (38-126) U/L Total Protein 7.0 (6.3-8.2) g/dL Albumin 4.3 (3.5-5.0) g/dL Current Medications Generic Name Dose Route Start Last Admin Trade Name Freq PRN Reason Stop Dose Admin Acetaminophen 650 mg 03/08/24 20:09 Acetaminophen Tab 325 Mg Tab PO Q6HR PRN Mild Pain or Fever > 100.5 Hydrocodone Bitart/Acetaminophen 1 each 03/09/24 10:48 Hydrocodone/Apap 5-325mg 1 Each Tab PO Q6HR PRN Severe Pain (Scale 7 to 10) Al Hydroxide/Mg Hydroxide 15 ml 03/08/24 20:09 Mag Hydrox/Al Hydrox/Simeth 30 Ml Cup PO Q6HR PRN Indigestion Amlodipine Besylate 5 mg 03/09/24 11:15 Amlodipine 5 Mg Tab PO DAILY [facility] Aspirin 81 mg 03/10/24 09:00 Aspirin 81 Mg PO DAILY [facility] Ferrous Sulfate 325 mg 03/09/24 09:00 03/09/24 08:26 Ferrous Sulfate 325 Mg Tab PO 325 mg DAILY [facility] Administration Heparin Sodium (Porcine) 5,000 unit 03/09/24 00:00 03/09/24 08:25 Heparin Sodium,Porcine 5,000 Unit/Ml 1 Ml Vial SQ 5,000 unit Q8HR [facility] Administration Lidocaine 1 patch 03/09/24 11:15 Lidocaine 4% Patch TOPICAL DAILY [facility] Protocol Multivitamins 1 each 03/09/24 09:00 03/09/24 08:25 Multivitamins, Thera 1 Each Tab PO 1 each DAILY [facility]I Administration Naloxone HCl 0.2 mg 03/08/24 20:09 Naloxone 0.4 Mg/Ml 1 Ml Vial IV Q2M PRN Opioid Reversal Ondansetron HCl 4 mg 03/08/24 20:09 03/09/24 08:24 Ondansetron 4 Mg/2 Ml Vial IVP 4 mg Q8HR PRN Administration Nausea And Vomiting Oxcarbazepine 300 mg 03/08/24 22:45 03/09/24 08:26 Oxcarbazepine 300 Mg Tab PO 300 mg BID DENI Administration Pantoprazole Sodium 40 mg 03/10/24 07:30 Pantoprazole 40 Mg Tablet PO AC-BRKFST [facility] Paroxetine HCl 10 mg 03/09/24 09:00 03/09/24 08:26 Paroxetine 10 Mg Tab PO 10 mg DAILY [facility]I Administration Tramadol HCl 50 mg 03/08/24 20:09 03/09/24 08:35 Tramadol 50 Mg Tab PO 50 mg Q6H PRN Administration Moderate Pain (Scale 4 to 6) Intake and Output 03/08/24 03/09/24 03/09/24 22:59 06:59 14:59 Intake Total 6.5 Balance 6.5 Intake: Intake, IV Titration 6.5 Amount Nitroglycerin-D5w Pmx 50 6.5 mg In Dextrose/Water 1 250ml.bag @ 5 MCG/MIN 1.5 mls/hr IV .Q24H ONE Rx#: [id number] Other: Weight 81.647 kg 03/08/24 17:12 03/08/24 17:56
[2024-03-09] MEDS: LIDOCAINE 4% PATCH TOPICAL SCH (11:17)
[2024-03-09] MEDS: HYDROcodone/APAP 5-325MG 1 EACH TAB PO PRN (11:17)
--- NOTE | 2024-03-09 11:20 | P.HPIM ---
History of Present Illness This is a pleasant 48 years old female with past medical history of multiple medical problems as below including history of seizure disorder. History of coronary artery disease status post bypass Patient was doing a visit to her neurologist for her history of seizure, she states last seizure was few months ago and Nelly was not working and currently she is on Trileptal 300 mg twice daily as per patient her seizure disorder looks stable but she was complaining from chest pain and her blood pressure was high so at her neurologist office she was directed to the emergency room Patient states that her chest pain started yesterday with between 6-11/29 currently 6/10 It is in the middle of her chest going to the left arm felt like pressure and stabbing with no significant relieving or precipitating factors She denies GI or symptoms. She is complaining from squeezing headache about 6/10 no weakness or tingling or numbness She vomited twice but currently she feels fine. She has some diarrhea about twice per day but no abdominal pain and abdomen is soft. Right upper quadrant area is nontender. Sampson sign is negative Patient is afebrile and hemodynamically stable. Blood pressure was elevated 156/109. Patient was started on antihypertensive medication She has unremarkable CBC, BMP, LFT, INR. Troponin tomorrow is negative EKG showing sinus rhythm at [address]-T changes chest x-ray: No acute process CT of the brain: No acute process CT of the thoracic aorta: Thoracic aorta not dilated. There is no aneurysm or dissection. No pulmonary embolism was identified Review of Systems Review of systems CONSTITUTIONAL: No fever, no malaise, no fatigue. HEENT: No recent visual problems or hearing problems. Denied any sore throat. CARDIOVASCULAR: No orthopnea, PND, no palpitations, no syncope. PULMONARY: No shortness of breath, no cough, no hemoptysis. GASTROINTESTINAL: No diarrhea, no nausea, no vomiting, no abdominal pain. Normoactive bowel sounds. NEUROLOGICAL: No headaches, no weakness, no numbness. HEMATOLOGICAL: Denies any bleeding or petechiae. GENITOURINARY: Denies any burning micturition, frequency, or urgency. MUSCULOSKELETAL/RHEUMATOLOGICAL: Denies any joint pain, swelling, or any muscle pain. ENDOCRINE: Denies any polyuria or polydipsia. Past Medical History Past Medical History: Asthma, Seizure Disorder Additional Past Medical History / Comment(s): seizure-like activity, no known 'actual' seizures, "blackouts", History of Any Multi-Drug Resistant Organisms: None Reported Past Surgical History: Coronary Bypass/CABG, Hernia Repair, Orthopedic Surgery Additional Past Surgical History / Comment(s): bunion removed, left ankle, left toe, rotator cuff repair, right shoulder, Past Psychological History: No Psychological Hx Reported Past Alcohol Use History: None Reported Medications and Allergies Home Medications Medication Instructions Recorded Confirmed Type Ferrous Sulfate [Feosol] 325 mg PO DAILY 02/06/24 03/08/24 History OXcarbazepine [Trileptal] 300 mg PO BID 02/06/24 03/08/24 History PARoxetine [Paxil] 10 mg PO DAILY 02/06/24 03/08/24 History Multivitamins, Thera [Multivitamin 1 tab PO DAILY 03/08/24 03/08/24 History (formulary)] Semaglutide [Wegovy] 0.5 mg SQ FR 03/08/24 03/08/24 History traMADol HCL 50 mg PO Q6H PRN 03/08/24 03/08/24 History Allergies Allergy/AdvReac Type Severity Reaction Status Date / Time cat dander AdvReac Unknown Verified 03/08/24 18:57 mold AdvReac Dyspnea Verified 03/08/24 18:57 Physical Exam Vitals: Vital Signs Temp Pulse Resp BP Pulse Ox 03/09/24 10:40 72 18 141/113 97 03/09/24 09:28 79 18 135/104 98 03/09/24 08:18 98.1 F 66 18 132/104 98 03/09/24 06:30 71 115/84 03/09/24 06:00 72 131/95 03/09/24 05:30 69 113/83 97 03/09/24 05:00 69 134/107 96 03/09/24 03:30 68 129/101 97 03/09/24 02:30 74 135/98 97 03/09/24 02:21 156/111 03/09/24 01:40 97.3 F L 71 14 159/119 98 03/09/24 00:19 71 16 130/109 96 03/08/24 23:30 86 143/98 03/08/24 22:25 98.1 F 85 16 155/103 96 03/08/24 22:06 147/107 03/08/24 21:55 90 153/120 03/08/24 21:03 86 140/95 03/08/24 20:27 81 134/99 99 03/08/24 19:32 97.7 F 80 16 155/108 97 03/08/24 17:58 87 18 144/108 97 03/08/24 16:45 98.4 F 79 17 156/109 96 Intake and Output 03/08/24 03/09/24 03/09/24 22:59 06:59 14:59 Intake Total 6.5 Balance 6.5 Intake: Intake, IV Titration 6.5 Amount Nitroglycerin-D5w Pmx 50 6.5 mg In Dextrose/Water 1 250ml.bag @ 5 MCG/MIN 1.5 mls/hr IV .Q24H ONE Rx#: [id number] Other: Weight 81.647 kg GENERAL: The patient is alert and oriented x3, not in any acute distress. Well developed, well nourished. HEENT: Pupils are round and equally reacting to light. EOMI. No scleral icterus. No conjunctival pallor. Normocephalic, atraumatic. No pharyngeal erythema. No thyromegaly. CARDIOVASCULAR: S1 and S2 present. No murmurs, rubs, or gallops. PULMONARY: Chest is clear to auscultation, no wheezing , no crackles. ABDOMEN: Soft, nontender, nondistended, normoactive bowel sounds. No palpable organomegaly. MUSCULOSKELETAL: No joint swelling or deformity. EXTREMITIES: No cyanosis, clubbing, or pedal edema. NEUROLOGICAL: Gross neurological examination did not reveal any focal deficits. SKIN: No rashes. no petechiae. Results CBC & Chem 7: 03/08/24 17:12 03/08/24 17:56 Labs: Abnormal Lab Results - Last 24 Hours (Table) 03/08/24 03/08/24 Range/Units 17:56 20:26 Sodium 136 L (137-145) mmol/L Glucose 54 L (74-99) mg/dL POC Glucose (mg/dL) 64 L (70-110) mg/dL Assessment and Plan Assessment: Chest pain, rule out cardiac causes. PE and aortic dissection were ruled out Hypertension with urgency, present on admission History of seizure on Trileptal, not an active issue History of coronary artery disease status post CABG Plan: Patient evaluated by spray drier who recommended stress test on Monday Started on aspirin Continue with other cardiac medication Started on Norvasc and metoprolol with close monitoring of blood pressure Pain management Cardiology consult Labs and medication were reviewed.. Continue same treatment. Continue with symptomatic treatment. Resume home medication. Monitor labs and vitals. DVT and GI prophylaxis. Further recommendations as per clinical course of the patient DVT prophylaxis: Subcutaneous heparin GI Prophylaxis: Protonix Prognosis is guarded
--- NOTE | 2024-03-09 14:17 | CA ---
Transthoracic Echo Report Name: Rosa Hurtado Age: 48 Gender: F : 1975 Exam Date: 03/09/2024 12:54 Exam Location: [facility] Ht (in): 65 Wt (lb): 180 Ordering Physician: Jose Johnson MD ([id number]) Attending/Referring Phys: Muck Hauler Dannielle Henriquez RDCS Procedure CPT: Indications: Chest pressure, HTN Cardiac Hx: Technical Quality: Good Contrast 1: Total Dose (mL): Contrast 2: Total Dose (mL): MEASUREMENTS (Male / Female) Normal Values 2D ECHO LV Diastolic Diameter PLAX 4.5 cm 4.2 - 5.9 / 3.9 - 5.3 cm LV Systolic Diameter PLAX 2.9 cm IVS Diastolic Thickness 0.9 cm 0.6 - 1.0 / 0.6 - 0.9 cm LVPW Diastolic Thickness 0.8 cm 0.6 - 1.0 / 0.6 - 0.9 cm LV Relative Wall Thickness 0.4 LVOT Diameter 2.6 cm LV Diastolic Volume MOD BP 92.5 cm??? 67 - 155 / 56 - 104 cm??? LV Systolic Volume MOD BP 40.3 cm??? 22 - 58 / 19 - 49 cm??? LV Ejection Fraction MOD BP 56.4 % >= 55 % LV Cardiac Index MOD BP 2181.4 cm???/min???m??? LV Diastolic Volume MOD 4C 97.2 cm??? LV Systolic Volume MOD 4C 41.1 cm??? LV Ejection Fraction MOD 4C 57.7 % LV Cardiac Index MOD 4C 2347.2 cm???/min???m??? LV Diastolic Length 4C 7.9 cm LV Systolic Length 4C 6.7 cm LV Diastolic Volume MOD 2C 84.8 cm??? LV Systolic Volume MOD 2C 36.9 cm??? LV Ejection Fraction MOD 2C 56.6 % LV Cardiac Index MOD 2C 2006.7 cm???/min???m??? LV Diastolic Length 2C 7.6 cm LV Systolic Length 2C 7.2 cm LA Volume 33.2 cm??? 18 - 58 / 22 - 52 cm??? LA Volume Index 16.9 cm???/m??? 16 - 28 cm???/m??? DOPPLER AV Peak Velocity 88.3 cm/s AV Peak Gradient 3.1 mmHg AV Mean Velocity 64.6 cm/s AV Mean Gradient 1.8 mmHg AV Velocity Time Integral 16.2 cm LVOT Peak Velocity 71.6 cm/s LVOT Peak Gradient 2.0 mmHg LVOT Velocity Time Integral 12.6 cm LVOT Stroke Volume 66.7 cm??? LVOT Stroke Volume Index 35.3 ml/m??? LVOT Cardiac Index 2789.8 cm???/min???m??? AV Area Cont Eq vti 4.1 cm??? AV Area Cont Eq pk 4.3 cm??? MV Area PHT 3.3 cm??? Mitral E Point Velocity 45.5 cm/s Mitral A Point Velocity 56.1 cm/s Mitral E to A Ratio 0.8 MV Deceleration Time 227.7 ms TR Peak Velocity 205.9 cm/s TR Peak Gradient 17.0 mmHg Right Atrial Pressure 5.0 mmHg Pulmonary Artery Systolic Pressu 22.0 mmHg Right Ventricular Systolic Press 22.0 mmHg PV Peak Velocity 61.7 cm/s PV Peak Gradient 1.5 mmHg FINDINGS Left Ventricle Left ventricular ejection fraction is estimated at 55-60 %. Left ventricular cavity size normal. Left ventricular wall thickness normal. No obvious regional wall motion abnormalities. Right Ventricle Normal right ventricular size and function. Right ventricular systolic pressure within normal limits. Right Atrium Normal right atrial size. Left Atrium Normal left atrial size. Mitral Valve Structurally normal mitral valve. No evidence for mitral valve prolapse. No mitral stenosis. Trace mitral regurgitation. Aortic Valve Trileaflet aortic valve. No aortic stenosis. Trace aortic regurgitation. Tricuspid Valve Structurally normal tricuspid valve. No tricuspid stenosis. Mild tricuspid regurgitation. Pulmonic Valve Structurally normal pulmonic valve. No pulmonic stenosis. Mild pulmonic regurgitation. Pericardium No pericardial effusion. Aorta Normal size aortic root and proximal ascending aorta. Dilated LVOT. CONCLUSIONS LVEF 55% No obvious regional wall motion abnormalities. Normal right ventricular size and function. No obvious regional wall motion abnormalities. Mild tricuspid regurgitation. Previewed by: Dr Jose Johnson (Electronically Signed) Final Date: 09 March 2024 14:16
[2024-03-09] MEDS: METOPROLOL SUCCINATE (ER) 25 MG TAB.ER.24H PO SCH (16:23)
[2024-03-09] MEDS: ACETAMINOPHEN TAB 325 MG TAB PO PRN (16:23)
[2024-03-09] MEDS: amLODIPine 5 MG TAB PO SCH (17:07)
[2024-03-09] MEDS: MAG HYDROX/AL HYDROX/SIMETH 30 ML CUP PO PRN (23:05)
[2024-03-10 06:53] LABS: Basophils % (A) 1 %; Eosinophils # (A) 0.1 k/uL (0-0.7); Eosinophils % (A) 5 %; HCT 39.6 % (34.0-46.0); Lymphocytes # (A) 1.5 k/uL (1.0-4.8); Lymphocytes % (A) 53 %; MCH 29.7 pg (25.0-35.0); MCHC 32.8 g/dL (31.0-37.0); MCV 90.6 fL (80.0-100.0); Mean Platelet Volume 7.1; Monocytes # (A) 0.1 k/uL (0-1.0); Monocytes % (A) 5 %; Neutrophils % (A) 34 %; Platelet Count 249 k/uL (150-450); RBC 4.37 m/uL (3.80-5.40); RDW 13.5 % (11.5-15.5); WBC 2.8 k/uL (3.8-10.6)
[2024-03-10] MEDS: PANTOPRAZOLE 40 MG TABLET PO SCH (06:53)
[2024-03-10 07:10] LABS: African American GFR (CKD) >90 (>60 ml/min/1.73 sqM); Anion Gap 5 mmol/L; Blood Urea Nitrogen 10 mg/dL (7-17); Calcium 9.3 mg/dL (8.4-10.2); Carbon Dioxide 32 mmol/L (22-30); Chloride 97 mmol/L (98-107); Glucose 76 mg/dL (74-99); Non-African American GFR(CKD) 86 (>60 ml/min/1.73 sqM); Potassium 4.3 mmol/L (3.5-5.1); Sodium 134 mmol/L (137-145)
[2024-03-10] MEDS: NICOTINE 14MG/24HR PATCH TRANSDERM SCH (09:21)
[2024-03-10] MEDS: ASPIRIN 81 MG PO SCH (09:22)
[2024-03-10 10:00] LABS: Chol/HDL Ratio 3.04 Ratio; LDL Cholesterol,Calculated 97.9 mg/dL (0.0-131.0)
--- NOTE | 2024-03-10 12:02 | P.PN ---
Subjective This is a pleasant 48 years old female with past medical history of multiple medical problems as below including history of seizure disorder. History of coronary artery disease status post bypass Patient was doing a visit to her neurologist for her history of seizure, she states last seizure was few months ago and Nelly was not working and currently she is on Trileptal 300 mg twice daily as per patient her seizure disorder looks stable but she was complaining from chest pain and her blood pressure was high so at her neurologist office she was directed to the emergency room Patient states that her chest pain started yesterday with between 6-11/29 currently 6/10 It is in the middle of her chest going to the left arm felt like pressure and stabbing with no significant relieving or precipitating factors She denies GI or symptoms. She is complaining from squeezing headache about 6/10 no weakness or tingling or numbness She vomited twice but currently she feels fine. She has some diarrhea about twice per day but no abdominal pain and abdomen is soft. Right upper quadrant area is nontender. Sampson sign is negative Patient is afebrile and hemodynamically stable. Blood pressure was elevated 156/109. Patient was started on antihypertensive medication She has unremarkable CBC, BMP, LFT, INR. Troponin tomorrow is negative EKG showing sinus rhythm at [address]-T changes chest x-ray: No acute process CT of the brain: No acute process CT of the thoracic aorta: Thoracic aorta not dilated. There is no aneurysm or dissection. No pulmonary embolism was identified 03/10 Patient still complaining of some chest pain about 4/10 Patient is planned for stress test tomorrow She still complains from headache about 8/10 No bowel movement today, diarrhea on admission was stopped Plan for stress test on Monday/tom Patient is supposed to follow-up with her neurologist tomorrow, patient was instructed to call tomorrow to reschedule within a week and she agrees Objective - Vital Signs Vital signs: Vital Signs Temp 97.8 F 03/10/24 11:33 Pulse 77 03/10/24 11:33 Resp 16 03/10/24 11:33 BP 138/96 03/10/24 11:33 Pulse Ox 100 03/10/24 11:33 FiO2 Intake & Output 03/09/24 03/10/24 03/10/24 18:59 06:59 18:59 Intake Total 270 280 120 Balance 270 280 120 Weight 81.7 kg Intake: IV 10 Invasive Line 1 10 Intake, IV Titration 260 Amount Sodium Chloride 0.9% 1, 260 000 ml @ 130 mls/hr IV . Q7H42M [facility] Rx#:[id number] Oral 280 120 Other: Voiding Method Toilet Toilet Toilet # Voids 1 - Exam GENERAL: The patient is alert and oriented x3, not in any acute distress. Well developed, well nourished. HEENT: Pupils are round and equally reacting to light. EOMI. No scleral icterus. No conjunctival pallor. Normocephalic, atraumatic. No pharyngeal erythema. No thyromegaly. CARDIOVASCULAR: S1 and S2 present. No murmurs, rubs, or gallops. PULMONARY: Chest is clear to auscultation, no wheezing , no crackles. ABDOMEN: Soft, nontender, nondistended, normoactive bowel sounds. No palpable organomegaly. MUSCULOSKELETAL: No joint swelling or deformity. EXTREMITIES: No cyanosis, clubbing, or pedal edema. NEUROLOGICAL: Gross neurological examination did not reveal any focal deficits. SKIN: No rashes. no petechiae. - Labs CBC & Chem 7: 03/10/24 06:35 03/10/24 06:35 Labs: Abnormal Lab Results - Last 24 Hours (Table) 03/09/24 03/10/24 03/10/24 Range/Units 11:28 06:35 06:35 WBC 2.8 L (3.8-10.6) k/uL Neutrophils # 1.0 L (1.3-7.7) k/uL Sodium 134 L (137-145) mmol/L Chloride 97 L (98-107) mmol/L Carbon Dioxide 32 H (22-30) mmol/L Triglycerides 161.00 H (0.00-149.00) mg/dL HDL Cholesterol 63.90 H (40.00-60.00) mg/dL Assessment and Plan Assessment: Chest pain, rule out cardiac causes. PE and aortic dissection were ruled out Hypertension with urgency, present on admission History of seizure on Trileptal, not an active issue History of coronary artery disease status post CABG Plan: Patient evaluated by non licensed nuclear plant operator who recommended stress test on Monday Started on aspirin Continue with other cardiac medication Started on Norvasc and metoprolol with close monitoring of blood pressure Pain management Cardiology consult Labs and medication were reviewed.. Continue same treatment. Continue with symptomatic treatment. Resume home medication. Monitor labs and vitals. DVT and GI prophylaxis. Further recommendations as per clinical course of the patient DVT prophylaxis: Subcutaneous heparin GI Prophylaxis: Protonix Prognosis is guarded
[2024-03-10] MEDS: BUTALB/APAP/CAFF 50-325-40MG TAB PO PRN (12:38)
[2024-03-10] MEDS: ATORVASTATIN 40 MG TAB PO SCH (21:15)
--- NOTE | 2024-03-10 23:07 | P.CRDCN ---
History of Present Illness Consult date: 03/10/24 History of present illness: HISTORY OF PRESENTING ILLNESS: Patient is a 48-year-old -[place] female with past medical history of seizure disorder, chronic back pain. Prior to coming to the hospital she was at her neurology office because of her acute exacerbation of back pain after bending forward and working on the ground. In the office she was told that her blood pressure was significantly elevated for which she was instructed to come to the hospital. She has also been experiencing substernal chest heaviness and pressure-like sensation for last 1 day. She denies any prior cardiovascular history She denies any history of marijuana use or IV alcohol use or cigarette smoking. She does use nicotine vaping. She does report family history of coronary artery disease and stroke in mother in 60s Admission Cardiac Labs: Troponin x 3 were negative, BUN is 13, creatinine 0.79 Hb 13.4 Admission testing: EKG shows normal sinus rhythm with no significant ST-T wave changes concerning for acute ischemia CTA chest did not show any evidence of dissection or pulmonary embolism Chest x-ray does not show signs of acute pulmonary congestion or consolidation Progress note 03/10/2024 Patient seen and examined at bedside this a.m. Her chest pressure has improved since her blood pressure is better. She still has symptoms of substernal chest pressure but at lesser intensity and frequency. PHYSICAL EXAMINATION: Neck: Brisk carotid upstroke, no jugular venous distention. Lungs: Clear to auscultation. Heart: Regular rate and rhythm, S1-S2, , no murmur or rub. Abdomen: Soft nontender, positive bowel sounds. Extremities: No edema, intact distal pulses. Neuro: Alert, oritented, no focal deficits. Detailed neuro exam was not performed. ASSESSMENT: # Substernal chest pressure, likely related to elevated blood pressure which is related to back pain. ACS has been ruled out. # Essential hypertension # Obesity on Mounjaro # Back pain # Tobacco vaping hba1c 4.9, NTproBNP 89, TSH 1.1, LDL 97 Echo shows EF 55%, no obvious regional wall motion normality or major valvular abnormality. PLAN: Start aspirin 81 mg, metoprolol succinate 12.5 mg daily, amlodipine 5 mg daily Obtain lipid panel HbA1c and TSH level Lexiscan nuclear stress test on Monday Lidocaine patch for the back Recommend evaluation by orthopedic /public transit specialist. As per primary team discretion Stop tobacco vaping Past Medical History Past Medical History: Asthma, Seizure Disorder Additional Past Medical History / Comment(s): non-epiliptic seizures History of Any Multi-Drug Resistant Organisms: None Reported Past Surgical History: Hernia Repair, Orthopedic Surgery Additional Past Surgical History / Comment(s): bunion removed-left toe,, left ankle, rotator cuff repair-right shoulder, umbilical hernia repair at child Past Anesthesia/Blood Transfusion Reactions: No Reported Reaction Smoking Status: Vaper - Past Family History Mother Family Medical History: CVA/TIA, Diabetes Mellitus, Hypertension, Renal Disease Father Family Medical History: Liver Disease Medications and Allergies Home Medications Medication Instructions Recorded Confirmed Type Ferrous Sulfate [Feosol] 325 mg PO DAILY 02/06/24 03/08/24 History OXcarbazepine [Trileptal] 300 mg PO BID 02/06/24 03/08/24 History PARoxetine [Paxil] 10 mg PO DAILY 02/06/24 03/08/24 History Multivitamins, Thera [Multivitamin 1 tab PO DAILY 03/08/24 03/08/24 History (formulary)] Semaglutide [Wegovy] 0.5 mg SQ FR 03/08/24 03/08/24 History traMADol HCL 50 mg PO Q6H PRN 03/08/24 03/08/24 History Allergies Allergy/AdvReac Type Severity Reaction Status Date / Time cat dander AdvReac Unknown Verified 03/08/24 18:57 mold AdvReac Dyspnea Verified 03/08/24 18:57 Physical Exam Vitals: Vital Signs Temp Pulse Resp BP Pulse Ox 03/10/24 23:05 15 127/96 100 03/10/24 21:06 98.2 F 81 17 117/78 99 03/10/24 16:37 97.4 F L 76 16 125/88 100 03/10/24 11:33 97.8 F 77 16 138/96 100 03/10/24 09:17 98.0 F 79 16 120/86 100 03/10/24 03:45 98.0 F 74 14 125/87 99 03/09/24 23:10 97.3 F L 78 14 148/99 100 Intake and Output 03/10/24 03/10/24 03/11/24 14:59 22:59 06:59 Intake Total 600 240 Balance 600 240 Intake: IV 18 Invasive Line 1 18 Oral 582 240 Other: Voiding Method Toilet Toilet # Voids 3 Results 03/10/24 06:35 03/10/24 06:35 Lipids 03/09/24 Range/Units 11:28 Triglycerides 161.00 H (0.00-149.00) mg/dL Cholesterol 194.00 (0.00-200.00) mg/dL HDL Cholesterol 63.90 H (40.00-60.00) mg/dL Cholesterol/HDL Ratio 3.04 Ratio CBC 03/10/24 Range/Units 06:35 WBC 2.8 L (3.8-10.6) k/uL RBC 4.37 (3.80-5.40) m/uL Hgb 13.0 (11.4-16.0) gm/dL Hct 39.6 (34.0-46.0) % Plt Count 249 (150-450) k/uL Comprehensive Metabolic Panel 03/10/24 Range/Units 06:35 Sodium 134 L (137-145) mmol/L Potassium 4.3 (3.5-5.1) mmol/L Chloride 97 L (98-107) mmol/L Carbon Dioxide 32 H (22-30) mmol/L BUN 10 (7-17) mg/dL Creatinine 0.81 (0.52-1.04) mg/dL Glucose 76 (74-99) mg/dL Calcium 9.3 (8.4-10.2) mg/dL Current Medications Generic Name Dose Route Start Last Admin Trade Name Freq PRN Reason Stop Dose Admin Acetaminophen 650 mg 03/08/24 20:09 03/10/24 18:41 Acetaminophen Tab 325 Mg Tab PO 650 mg Q6HR PRN Administration Mild Pain or Fever > 100.5 Hydrocodone Bitart/Acetaminophen 1 each 03/09/24 10:48 03/10/24 21:16 Hydrocodone/Apap 5-325mg 1 Each Tab PO 1 each Q6HR PRN Administration Severe Pain (Scale 7 to 10) Al Hydroxide/Mg Hydroxide 15 ml 03/08/24 20:09 03/10/24 10:38 Mag Hydrox/Al Hydrox/Simeth 30 Ml Cup PO 15 ml Q6HR PRN Administration Indigestion Aminophylline 100 mg 03/11/24 06:00 Aminophylline 500 Mg/20 Ml Vial IV 03/11/24 23:00 ONCE PRN Patient Response Amlodipine Besylate 5 mg 03/09/24 11:15 03/10/24 11:34 Amlodipine 5 Mg Tab PO 5 mg DAILY DENI Administration Aspirin 81 mg 03/10/24 09:00 03/10/24 09:22 Aspirin 81 Mg PO 81 mg DAILY DENI Administration Atorvastatin Calcium 40 mg 03/10/24 21:00 03/10/24 21:15 Atorvastatin 40 Mg Tab PO 40 mg HS DENI Administration Caffeine Citrate 60 mg 03/11/24 06:00 Caffeine Citrate 60 Mg/3 Ml Vial IV 03/11/24 23:00 ONCE PRN Patient Response Ferrous Sulfate 325 mg 03/09/24 09:00 03/10/24 09:22 Ferrous Sulfate 325 Mg Tab PO Not Given DAILY DENI Heparin Sodium (Porcine) 5,000 unit 03/09/24 00:00 03/10/24 23:02 Heparin Sodium,Porcine 5,000 Unit/Ml 1 Ml Vial SQ 5,000 unit Q8HR DENI Administration Lidocaine 1 patch 03/09/24 11:15 03/10/24 09:21 Lidocaine 4% Patch TOPICAL 1 patch DAILY DENI Administration Protocol Metoprolol Succinate 12.5 mg 03/09/24 11:15 03/10/24 09:22 Metoprolol Succinate (Er) 25 Mg Tab.Er.24h PO 12.5 mg DAILY DENI Administration Multivitamins 1 each 03/09/24 09:00 03/10/24 09:22 Multivitamins, Thera 1 Each Tab PO 1 each DAILY DENI Administration Naloxone HCl 0.2 mg 03/08/24 20:09 Naloxone 0.4 Mg/Ml 1 Ml Vial IV Q2M PRN Opioid Reversal Nicotine 1 patch 03/10/24 09:00 03/10/24 09:21 Nicotine 14mg/24hr Patch TRANSDERM 1 patch DAILY DENI Administration Ondansetron HCl 4 mg 03/08/24 20:09 03/10/24 11:34 Ondansetron 4 Mg/2 Ml Vial IVP 4 mg Q8HR PRN Administration Nausea And Vomiting Oxcarbazepine 300 mg 03/08/24 22:45 03/10/24 21:15 Oxcarbazepine 300 Mg Tab PO 300 mg BID DENI Administration Pantoprazole Sodium 40 mg 03/10/24 07:30 03/10/24 06:53 Pantoprazole 40 Mg Tablet PO 40 mg AC-[id number] DENI Administration Paroxetine HCl 10 mg 03/09/24 09:00 03/10/24 09:23 Paroxetine 10 Mg Tab PO 10 mg DAILY DENI Administration Regadenoson 0.4 mg 03/11/24 06:00 Regadenoson 0.4 Mg/5 Ml Syringe IV 03/11/24 23:00 ONCE PRN Per Protocol Tramadol HCl 50 mg 03/08/24 20:09 03/10/24 23:02 Tramadol 50 Mg Tab PO 50 mg Q6H PRN Administration Moderate Pain (Scale 4 to 6) Intake and Output 03/10/24 03/10/24 03/11/24 14:59 22:59 06:59 Intake Total 600 240 Balance 600 240 Intake: IV 18 Invasive Line 1 18 Oral 582 240 Other: Voiding Method Toilet Toilet # Voids 3 03/10/24 06:35 03/10/24 06:35
[2024-03-11] MEDS ORDERED: CAFFEINE CITRATE 60 MG/3 ML VIAL IV PRN (06:00)
[2024-03-11] MEDS ORDERED: AMINOPHYLLINE 500 MG/20 ML VIAL IV PRN (06:00)
[2024-03-11] MEDS ORDERED: REGADENOSON 0.4 MG/5 ML SYRINGE IV PRN (07:00)
[2024-03-11] MEDS ORDERED: REGADENOSON 0.4 MG/5 ML SYRINGE IV ONE (08:00)
--- NOTE | 2024-03-11 16:52 | CA ---
Lexiscan Nuclear Stress Test Report Name: Rosa Hurtado Exam Date: 03/11/2024 09:54 Exam Location: [facility] Ht (in): 65 Wt (lb): 179 BSA: 1.89 Ordering Phys: Jose Johnson MD Referring Phys: DK Technologist: SANIYA Age: 48 Gender: F : 1975 Procedure CPT: Indications: Reflex order-Stress test ICD-10 Codes: Patient History: Chest pain, short of breath and palpitations Medications: Meds past 24 hrs: Pretest Chest Pain: STRESS TEST Lexiscan Protocol Exercise Duration (min:sec): 02:[address] Depressions (mm): Angina Score: Rodriguez Score: Resting HR (bpm): 73 Peak HR (bpm): 96 Resting BP (mmHg): 121 / 91 Peak BP (mmHg): / 95 MPHR: 170 Target HR: 145 % MPHR: 56 METS: 1.0 Total Dose: Peak Dose: Atropine: Double Product: BP Response: Stress Termination: Infusion complete Stress Symptoms: No chest pain or symptoms Stress Summary: ECG ANALYSIS Resting ECG: Stress ECG: CONCLUSIONS At baseline EKG showed normal sinus rhythm, normal axis, Q waves V1 and V2 and no significant ST or T wave abnormalities. Patient recieved IV infusion of Lexiscan 0.4mg and at peak infusion EKG showed no significant change from baseline. Conclusions: 1. Normal EKG response to Lexiscan infusion 2. Nuclear imaging to be reported separately. Dr. Jaime Inman DO (Electronically Signed) Final Date: 11 March 2024 16:52
--- NOTE | 2024-03-11 19:17 | P.PN ---
Subjective This is a pleasant 48 years old female with past medical history of multiple medical problems as below including history of seizure disorder. History of coronary artery disease status post bypass Patient was doing a visit to her neurologist for her history of seizure, she states last seizure was few months ago and Nelly was not working and currently she is on Trileptal 300 mg twice daily as per patient her seizure disorder looks stable but she was complaining from chest pain and her blood pressure was high so at her neurologist office she was directed to the emergency room Patient states that her chest pain started yesterday with between 6-10/10 currently 6/10 It is in the middle of her chest going to the left arm felt like pressure and stabbing with no significant relieving or precipitating factors She denies GI or symptoms. She is complaining from squeezing headache about 6/10 no weakness or tingling or numbness She vomited twice but currently she feels fine. She has some diarrhea about twice per day but no abdominal pain and abdomen is soft. Right upper quadrant area is nontender. Sampson sign is negative Patient is afebrile and hemodynamically stable. Blood pressure was elevated 156/109. Patient was started on antihypertensive medication She has unremarkable CBC, BMP, LFT, INR. Troponin tomorrow is negative EKG showing sinus rhythm at [address]-T changes chest x-ray: No acute process CT of the brain: No acute process CT of the thoracic aorta: Thoracic aorta not dilated. There is no aneurysm or dissection. No pulmonary embolism was identified 03/10 Patient still complaining of some chest pain about 4/10 Patient is planned for stress test tomorrow She still complains from headache about 8/10 No bowel movement today, diarrhea on admission was stopped Plan for stress test on Monday/ Patient is supposed to follow-up with her neurologist tomorrow, patient was instructed to call tomorrow to reschedule within a week and she agrees 03/11 Patient had stress test today, EKG part showing normal response to Lexiscan infusion pending the nuclear part Patient hemodynamically stable low She denies chest pain or any other complaint As per patient made appointment with her neurologist sometime this week Objective - Vital Signs Vital signs: Vital Signs Temp 98 F 03/11/24 15:53 Pulse 83 03/11/24 15:53 Resp 16 03/11/24 15:53 BP 116/77 03/11/24 15:53 Pulse Ox 97 03/11/24 15:53 FiO2 Intake & Output 03/11/24 03/11/24 03/12/24 06:59 18:59 06:59 Intake Total 240 Balance 240 Weight 81.6 kg Intake: Oral 240 Other: Voiding Method Toilet Toilet # Voids 1 1 - Exam GENERAL: The patient is alert and oriented x3, not in any acute distress. Well developed, well nourished. HEENT: Pupils are round and equally reacting to light. EOMI. No scleral icterus. No conjunctival pallor. Normocephalic, atraumatic. No pharyngeal erythema. No thyromegaly. CARDIOVASCULAR: S1 and S2 present. No murmurs, rubs, or gallops. PULMONARY: Chest is clear to auscultation, no wheezing , no crackles. ABDOMEN: Soft, nontender, nondistended, normoactive bowel sounds. No palpable organomegaly. MUSCULOSKELETAL: No joint swelling or deformity. EXTREMITIES: No cyanosis, clubbing, or pedal edema. NEUROLOGICAL: Gross neurological examination did not reveal any focal deficits. SKIN: No rashes. no petechiae. - Labs CBC & Chem 7: 03/10/24 06:35 03/10/24 06:35 Assessment and Plan Assessment: Chest pain, rule out cardiac causes. PE and aortic dissection were ruled out Hypertension with urgency, present on admission History of seizure on Trileptal, not an active issue History of coronary artery disease status post CABG Plan: Patient is a status post stress test on Saturday 03/11. The EKG response was emeterio l. Pending nuclear part Started on aspirin Continue with other cardiac medication Started on Norvasc and metoprolol with close monitoring of blood pressure Pain management Cardiology consult Labs and medication were reviewed.. Continue same treatment. Continue with symptomatic treatment. Resume home medication. Monitor labs and vitals. DVT and GI prophylaxis. Further recommendations as per clinical course of the patient DVT prophylaxis: Subcutaneous heparin GI Prophylaxis: Protonix Prognosis is guarded Possible discharge in 24 hours once stress test is back and patient continued to improve
[2024-03-11] MEDS: LORazepam 0.5 MG TAB PO ONE (20:19)
[2024-03-11] MEDS: polyethylene glycoL 3350 17 GM POWD.PACK PO PRN (20:19)
[2024-03-12] MEDS: LORazepam 0.5 MG TAB PO STA (09:36)
[2024-03-12 10:08] VITALS: RESP 16; TEMP 97.7
--- NOTE | 2024-03-12 11:19 | NM ---
EXAMINATION TYPE: NM stress lexiscan cardiolite DATE OF EXAM: 03/12/2024 COMPARISON: NONE CLINICAL INDICATION: Female, 48 years old with history of angina; TECHNIQUE: After the intravenous administration of 9.8 mCi Tc 99m Sestamibi - Cardiolite resting SPE CT images acquired 95 minutes post injection. The patient received 0.4mg Lexiscan, 22.4 mCi Tc 99m Sestamibi - Stress images obtained [address] injection FINDINGS: Review of stress and rest SPECT images demonstrates no distinct perfusion abnormality. Gated analysi s shows normal wall motion with an estimated left ventricular ejection fraction of 55 %. IMPRESSION: No scintigraphic evidence for reversible ischemia. [facility], , 03/12/2024 11:17 AM
[2024-03-12 11:30] VITALS: BP 117/89; PULSE 76
--- NOTE | 2024-03-12 13:09 | P.PN ---
Subjective HISTORY OF PRESENT ILLNESS: Patient underwent Lexiscan stress test yesterday which was negative for ischemia. Patient examined this morning the bedside. Patient denies any chest pain or pressure. She denies any shortness of breath. Vital signs are stable. PHYSICAL EXAM: VITAL SIGNS: Reviewed. GENERAL: Well-developed in no acute distress. NECK: Supple. No JVD or thyromegaly LUNGS: Respirations even and unlabored. Lungs essentially clear to auscultation bilaterally. HEART: Regular rate and rhythm. S1 and S2 heard. EXTREMITIES: Normal range of motion. No clubbing or cyanosis. Peripheral pulses intact. No lower extremity edema ASSESSMENT: Chest pain, status post Lexiscan stress test negative for ischemia Hypertension Back pain Nicotine dependence with vaping PLAN: Patient's Lexiscan stress test is negative for ischemia No further inpatient recommendations from a cardiac standpoint Patient may be discharged home today from a cardiac standpoint Nurse practitioner note has been reviewed by physician. Signing provider agrees with the documented findings, assessment, and plan of care documented by SQUEEGEE FINISHER as a scribe. Objective - Vital Signs Vital signs: Vital Signs Temp 97.7 F 03/12/24 08:00 Pulse 76 03/12/24 11:28 Resp 16 03/12/24 11:28 BP 117/89 03/12/24 11:28 Pulse Ox 99 03/12/24 11:28 FiO2 Intake & Output 03/11/24 03/12/24 03/12/24 18:59 06:59 18:59 Intake Total 240 360 Balance 240 360 Weight 82.3 kg Intake: Oral 240 360 Other: Voiding Method Toilet Toilet Toilet # Voids 1 1 - Labs CBC & Chem 7: 03/10/24 06:35 03/10/24 06:35
--- NOTE | 2024-03-12 21:02 | P.DS ---
Providers Date of admission: 03/12/24 06:34 Attending physician: Kathy Kumar Consults: 03/08/24 20:09 Consult Physician Routine Consulting Provider: Jaime Inman Consult Reason/Comments: chest pain Do you want consulting provider notified?: Yes, Notify in am Primary care physician: Stated None Hospital Course: Diagnoses Chest pain, PE and aortic dissection were ruled out. Patient had negative stress test and cleared by public address systems mechanic for discharge. Resolved Hypertension with urgency, present on admission. Well-controlled on discharge History of seizure on Trileptal, not an active issue History of coronary artery disease status post CABG Anxiety Hospital course: This is a pleasant 48 years old female with past medical history of multiple medical problems as below including history of seizure disorder. History of coronary artery disease status post bypass Patient was doing a visit to her neurologist for her history of seizure, she states last seizure was few months ago and Nelly was not working and currently she is on Trileptal 300 mg twice daily as per patient her seizure disorder looks stable but she was complaining from chest pain and her blood pressure was high so at her neurologist office she was directed to the emergency room Patient evaluated by public address systems mechanic and she underwent stress test of the heart which came back negative for active ischemic disease. CT of the thoracic aorta: Thoracic aorta not dilated. There is no aneurysm or dissection. No pulmonary embolism was identified Blood pressure is also controlled upon discharge after adding metoprolol and Norvasc Patient was feeling very anxious looks tired as with headache, last night she received 1 dose of Ativan and she felt drastically better this morning happy and relaxed and comfortable wanted to go home but she was requesting more doses for anxiety, explained to her the risk of benzodiazepine including but not limited to the risk of addiction and respiratory depression and she verbalized understa nding but she refuses other alternative offered for her like BuSpar therefore we will give her 2 days of Ativan upon discharge with recommendation to follow-up with her PCP closely upon discharge and she agrees with this plan Patient denies any other needs or complaint. Patient and at bedside agreeable she can go home today Patient was cleared for discharge by public address systems mechanic Problems and management plan were discussed with the patient and he verbalized understanding and acceptance Patient was found stable and can be discharged home in guarded prognosis however he needs follow-up as an outpatient. Patient was instructed to follow up with PCP within one week and patient agrees Patient was instructed to follow-up with her neurologist, she told me and her told me also she made appointment with her neurologist this week that she intends to follow-up with and she has contact information Also patient was instructed to follow-up with public address systems mechanic Dr. Inman in 1 week after discharge and she agrees Physical exam Gen: patient is a AAOx3, no distress CVS: S1-S2, RRR, no murmur Lungs: B/L CTA, no wheezing Abdomen: soft, no distention, no tenderness, positive bowel sounds Extremity: no leg edema or induration Time spent more than 35 minutes Patient Condition at Discharge: Stable Plan - Discharge Summary Discharge Rx Participant: No New Discharge Prescriptions: New Nicotine 14Mg/24Hr Patch [Habitrol] 1 patch TRANSDERM DAILY #3 patch Lidocaine 4% Patch 1 patch TOPICAL DAILY #3 patch amLODIPine [Norvasc] 5 mg PO DAILY #30 tab Metoprolol Succinate (ER) [Toprol XL] 12.5 mg PO DAILY #15 tab LORazepam [Ativan] 0.5 mg PO HS 3 Days #2 tab Atorvastatin [Lipitor] 40 mg PO HS #30 tab Continue OXcarbazepine [Trileptal] 300 mg PO BID Ferrous Sulfate [Iron (65 MG Elemental)] 325 mg PO DAILY traMADol HCL 50 mg PO Q6H PRN PRN Reason: Pain PARoxetine [Paxil] 10 mg PO DAILY Semaglutide [Wegovy] 0.5 mg SQ FR Multivitamins, Thera [Multivitamin (formulary)] 1 tab PO DAILY Discharge Medication List Ferrous Sulfate [Iron (65 MG Elemental)] 325 mg PO DAILY 02/06/24 [History] OXcarbazepine [Trileptal] 300 mg PO BID 02/06/24 [History] PARoxetine [Paxil] 10 mg PO DAILY 02/06/24 [History] Multivitamins, Thera [Multivitamin (formulary)] 1 tab PO DAILY 03/08/24 [History] Semaglutide [Wegovy] 0.5 mg SQ FR 03/08/24 [History] traMADol HCL 50 mg PO Q6H PRN 03/08/24 [History] Atorvastatin [Lipitor] 40 mg PO HS #30 tab 03/12/24 [Rx] LORazepam [Ativan] 0.5 mg PO HS 3 Days #2 tab 03/12/24 [Rx] Lidocaine 4% Patch 1 patch TOPICAL DAILY #3 patch 03/12/24 [Rx] Metoprolol Succinate (ER) [Toprol XL] 12.5 mg PO DAILY #15 tab 03/12/24 [Rx] Nicotine 14Mg/24Hr Patch [Habitrol] 1 patch TRANSDERM DAILY #3 patch 03/12/24 [Rx] amLODIPine [Norvasc] 5 mg PO DAILY #30 tab 03/12/24 [Rx] Follow up Appointment(s)/Referral(s): Jaime Inman DO [STAFF PHYSICIAN] - 1 Week (CALL AND MAKE HERMES! (Heart doctor) ) None,Stated [Primary Care Provider] - 1-2 days Patient Instructions/Handouts: Chest Pain (DC), Hypertension (DC) Activity/Diet/Wound Care/Special Instructions: Heart healthy diet Activity is restricted till you see your doctor Please follow-up with your neurologist and your appointment you made this week as you inform the medical team. You have the contact information Discharge/Stand Alone Forms: Area PCPs Discharge Disposition: HOME SELF-CARE
== END 2024-03-12 13:12 | disposition home or self-care (01) | DRG 199 ==
LOC: EC 16:44 → 3SCARD 20:12 → OBSVTOIN 20:13 → 3SCARD 21:31 → OBSVTOIN 03-12 06:34 → INTOOBSV 03-12 06:34 → UNDODISIN 03-12 13:12
PROVIDERS: ADMIT Hospitalist; ATTEND Hospitalist
DX: I16.0 Hypertensive urgency (principal); G40.909 Epilepsy, unspecified, not intractable, without status epilepticus; E66.9 Obesity, unspecified; Z68.30 Body mass index [BMI] 30.0-30.9, adult; I10 Essential (primary) hypertension; F41.9 Anxiety disorder, unspecified; M54.9 Dorsalgia, unspecified; I25.10 Atherosclerotic heart disease of native coronary artery without angina pectoris; F17.290 Nicotine dependence, other tobacco product, uncomplicated; Z82.3 Family history of stroke; Z79.899 Other long term (current) drug therapy; Z79.85 Long-term (current) use of injectable non-insulin antidiabetic drugs; Z95.1 Presence of aortocoronary bypass graft; Z82.49 Family history of ischemic heart disease and other diseases of the circulatory system
CPT/HCPCS: 36415; 70450; 71046; 71275; 74174; 78452; 80048; 80053; 80061; 83036; 83690; 83735; 83880; 84443; 84484; 85025; 85610; 85730; 93005; 93017; 93306; 96361; 96365; 96366; 96372; 96375; 96376; 99291

== ENCOUNTER 2024-03-16 09:33 | Inpatient (IN) | payer OTHER ==
--- NOTE | 2024-03-16 10:08 | ED ---
General Adult HPI - General Chief complaint: Chest Pain Stated complaint: nausea Time Seen by Provider: 03/16/24 09:44 Source: patient, RN notes reviewed, old records reviewed Mode of arrival: ambulatory Limitations: no limitations - History of Present Illness Initial comments: Patient is a 48-year-old female presenting to the emergency department with chest discomfort. Onset of symptoms was yesterday. Patient does have associated nausea and dry heaves. Patient has some minimal associated dyspnea. Patient was in the hospital last week with similar symptoms. Patient believes she had a negative stress test. Patient states she did have improvement with nitroglycerin previously. Discomfort is moderate to severe at this time and is described as tightness. - Related Data Home Medications Medication Instructions Recorded Confirmed Ferrous Sulfate [Iron (65 MG 325 mg PO DAILY 02/06/24 03/08/24 Elemental)] OXcarbazepine [Trileptal] 300 mg PO BID 02/06/24 03/08/24 PARoxetine [Paxil] 10 mg PO DAILY 02/06/24 03/08/24 Multivitamins, Thera [Multivitamin 1 tab PO DAILY 03/08/24 03/08/24 (formulary)] Semaglutide [Wegovy] 0.5 mg SQ FR 03/08/24 03/08/24 traMADol HCL 50 mg PO Q6H PRN 03/08/24 03/08/24 Previous Rx's Medication Instructions Recorded Atorvastatin [Lipitor] 40 mg PO HS #30 tab 03/12/24 LORazepam [Ativan] 0.5 mg PO HS 3 Days #2 tab 03/12/24 Lidocaine 4% Patch 1 patch TOPICAL DAILY #3 patch 03/12/24 Metoprolol Succinate (ER) [Toprol 12.5 mg PO DAILY #15 tab 03/12/24 XL] Nicotine 14Mg/24Hr Patch [Habitrol] 1 patch TRANSDERM DAILY #3 patch 03/12/24 amLODIPine [Norvasc] 5 mg PO DAILY #30 tab 03/12/24 Allergies Allergy/AdvReac Type Severity Reaction Status Date / Time cat dander AdvReac Unknown Verified 03/16/24 09:38 mold AdvReac Dyspnea Verified 03/16/24 09:38 Review of Systems ROS Statement: Those systems with pertinent positive or pertinent negative responses have been documented in the HPI. ROS Other: All systems not noted in ROS Statement are negative. Constitutional: Denies: fever Eyes: Denies: eye pain ENT: Denies: ear pain Respiratory: Reports: as per HPI Cardiovascular: Reports: as per HPI, chest pain Endocrine: Denies: fatigue Gastrointestinal: Reports: as per HPI, nausea Musculoskeletal: Denies: back pain Past Medical History Past Medical History: Asthma, Seizure Disorder Additional Past Medical History / Comment(s): seizure-like activity, no known 'actual' seizures, "blackouts", History of Any Multi-Drug Resistant Organisms: None Reported Past Surgical History: Hernia Repair, Orthopedic Surgery Additional Past Surgical History / Comment(s): bunion removed, left ankle, left toe, rotator cuff repair, right shoulder, Past Anesthesia/Blood Transfusion Reactions: No Reported Reaction Past Psychological History: No Psychological Hx Reported Smoking Status: Vaper Past Alcohol Use History: Occasional Past Drug Use History: None Reported - Past Family History Mother Family Medical History: CVA/TIA, Diabetes Mellitus, Hypertension, Renal Disease Father Family Medical History: Liver Disease General Exam Limitations: no limitations General appearance: alert Head exam: Present: normocephalic Eye exam: Present: normal appearance Neck exam: Present: normal inspection Respiratory exam: Present: normal lung sounds bilaterally. Absent: chest wall tenderness Cardiovascular Exam: Present: regular rate, normal rhythm, normal heart sounds Expanded Peripheral pulses: 2+: Radial (R), Radial (L), Posterior Tibialis (R), Posterior Tibialis (L) GI/Abdominal exam: Present: soft. Absent: tenderness Extremities exam: Present: normal inspection. Absent: pedal edema, calf tend erness Neurological exam: Present: alert Psychiatric exam: Present: normal affect, normal mood Skin exam: Present: normal color Course Vital Signs 03/16/24 03/16/24 03/16/24 09:38 09:57 10:11 Temperature 98.1 F Pulse Rate 98 Respiratory 20 Rate Blood Pressure 130/86 132/100 141/111 O2 Sat by Pulse 98 Oximetry 03/16/24 03/16/24 03/16/24 10:25 11:11 11:58 Temperature Pulse Rate 97 80 77 Respiratory 18 15 17 Rate Blood Pressure 132/91 144/100 145/105 O2 Sat by Pulse 96 96 95 Oximetry 03/16/24 12:56 Temperature Pulse Rate 83 Respiratory 16 Rate Blood Pressure 135/107 O2 Sat by Pulse 95 Oximetry EKG Findings - EKG Results: EKG: interpreted by ERMD, sinus rhythm, normal axis, normal QRS, normal ST/T Medical Decision Making - Medical Decision Making Was pt. sent in by a medical professional or institution (JACQUELINE Curiel, TRAINING AND DEVELOPMENT DIRECTOR, urgent care, hospital, or snf...) When possible be specific @ -No Did you speak to anyone other than the patient for history (EMS, parent, family, police, friend...)? What history was obtained from this source @ -No Did you review nursing and triage notes (agree or disagree)? Why? @ -I reviewed and agree with nursing and triage notes Were old charts reviewed (outside hosp., previous admission, EMS record, old EKG, old radiological studies, urgent care reports/EKG's, snf records)? Report findings @ -Previous admission reviewed Differential Diagnosis (chest pain, altered mental status, abdominal pain women, abdominal pain men, vaginal bleeding, weakness, fever, dyspnea, syncope, headache, dizziness, GI bleed, back pain, seizure, CVA, palpatations, mental health, musculoskeletal)? @ -Differential Chest Pain: Stable Angina, Unstable Angina, STEMI, NSTEMI Aortic Dissection, Pneumothorax, Musculoskeletal, Esophageal Spasm GERD, Cholecystitis, Pancreatitis, Zoster, this is not meant to be an all-inclusive list. EKG interpreted by me (3pts min.). @ -As above X-rays interpreted by me (1pt min.). @ -Chest x-ray shows no acute process CT interpreted by me (1pt min.). @ -None done U/S interpreted by me (1pt. min.). @ -None done What testing was considered but not performed or refused? (CT, X-rays, U/S, lab s)? Why? @ -None What meds were considered but not given or refused? Why? @ -None Did you discuss the management of the patient with other professionals (professionals i.e. JACQUELINE Curiel, TRAINING AND DEVELOPMENT DIRECTOR, lab, RT, psych nurse, hospital social worker, linux kernel developer, teacher, senior commercial loan officer, watch case polisher)? Give summary @ -Case was discussed with Dr. Lopez who will admit patient recently under service Was smoking cessation discussed for >3mins.? @ -No Was critical care preformed (if so, how long)? @ -No Were there social determinants of health that impacted care today? How? (Homelessness, low income, unemployed, alcoholism, drug addiction, transportation, low edu. Level, literacy, decrease access to med. care, correction, rehab)? @ -No Was there de-escalation of care discussed even if they declined (Discuss DNR or withdrawal of care, Hospice)? DNR status @ -No What co-morbidities impacted this encounter? (DM, HTN, Smoking, COPD, CAD, Cancer, CVA, ARF, Chemo, Hep., AIDS, mental health diagnosis, sleep apnea, morbid obesity)? @ -None Was patient admitted / discharged? Hospital course, mention meds given and route, prescriptions, significant lab abnormalities, going to OR and other pertinent info. @ -Patient presents with chest discomfort, recently hospitalized. Initial evaluation unremarkable. Blood pressure remains high and patient still has some discomfort. Patient to be admitted with cardiac consult. Admission orders written. Patient reevaluated and updated. Undiagnosed new problem with uncertain prognosis? @ -No Drug Therapy requiring intensive monitoring for toxicity (Heparin, Nitro, Insulin, Cardizem)? @ -No Were any procedures done? @ -No Diagnosis/symptom? @ -Chest pain Acute, or Chronic, or Acute on Chronic? @ -Acute Uncomplicated (without systemic symptoms) or Complicated (systemic symptoms)? @ -Complicated with hypertension Side effects of treatment? @ -No Exacerbation, Progression, or Severe Exacerbation? @ -No Poses a threat to life or bodily function? How? (Chest pain, USA, ID, pneumonia, PE, COPD, DKA, ARF, appy, cholecystitis, CVA, Diverticulitis, Homicidal, Suicidal, threat to staff... and all critical care pts) @ -Threat to cardiac function - Lab Data Result diagrams: 03/16/24 10:09 03/16/24 10:09 Lab Results 03/16/24 03/16/24 03/16/24 Range/Units 10:09 10:09 10:09 WBC 3.0 L (3.8-10.6) k/uL RBC 4.29 (3.80-5.40) m/uL Hgb 12.8 (11.4-16.0) gm/dL Hct 37.9 (34.0-46.0) % MCV 88.2 (80.0-100.0) fL MCH 29.7 (25.0-35.0) pg MCHC 33.7 (31.0-37.0) g/dL RDW 13.4 (11.5-15.5) % Plt Count 276 (150-450) k/uL MPV 7.4 Neutrophils % 43 % Lymphocytes % 41 % Monocytes % 9 % Eosinophils % 4 % Basophils % 1 % Neutrophils # 1.3 (1.3-7.7) k/uL Lymphocytes # 1.3 (1.0-4.8) k/uL Monocytes # 0.3 (0-1.0) k/uL Eosinophils # 0.1 (0-0.7) k/uL Basophils # 0.0 (0-0.2) k/uL PT 10.4 (10.0-12.5) sec INR 0.9 (<1.2) APTT 23.4 (22.0-30.0) sec D-Dimer 0.41 (<0.60) mg/L FEU Sodium 138 (137-145) mmol/L Potassium 4.4 (3.5-5.1) mmol/L Chloride 102 (98-107) mmol/L Carbon Dioxide 22 (22-30) mmol/L Anion Gap 14 mmol/L BUN 8 (7-17) mg/dL Creatinine 0.76 (0.52-1.04) mg/dL Est GFR (CKD-EPI)AfAm >90 (>60 ml/min/1.73 sqM) Est GFR (CKD-EPI)NonAf >90 (>60 ml/min/1.73 sqM) Glucose 62 L (74-99) mg/dL Calcium 9.0 (8.4-10.2) mg/dL Magnesium 2.0 (1.6-2.3) mg/dL Total Bilirubin 0.5 (0.2-1.3) mg/dL AST 109 H (14-36) U/L ALT 76 H (4-34) U/L Alkaline Phosphatase 69 (38-126) U/L Troponin I (0.000-0.034) ng/mL NT-Pro-B Natriuret Pep 115 pg/mL Total Protein 6.8 (6.3-8.2) g/dL Albumin 4.4 (3.5-5.0) g/dL 01/25/25 Range/Units 10:09 WBC (3.8-10.6) k/uL RBC (3.80-5.40) m/uL Hgb (11.4-16.0) gm/dL Hct (34.0-46.0) % MCV (80.0-100.0) fL MCH (25.0-35.0) pg MCHC (31.0-37.0) g/dL RDW (11.5-15.5) % Plt Count (150-450) k/uL MPV Neutrophils % % Lymphocytes % % Monocytes % % Eosinophils % % Basophils % % Neutrophils # (1.3-7.7) k/uL Lymphocytes # (1.0-4.8) k/uL Monocytes # (0-1.0) k/uL Eosinophils # (0-0.7) k/uL Basophils # (0-0.2) k/uL PT (10.0-12.5) sec INR (<1.2) APTT (22.0-30.0) sec D-Dimer (<0.60) mg/L FEU Sodium (137-145) mmol/L Potassium (3.5-5.1) mmol/L Chloride (98-107) mmol/L Carbon Dioxide (22-30) mmol/L Anion Gap mmol/L BUN (7-17) mg/dL Creatinine (0.52-1.04) mg/dL Est GFR (CKD-EPI)AfAm (>60 ml/min/1.73 sqM) Est GFR (CKD-EPI)NonAf (>60 ml/min/1.73 sqM) Glucose (74-99) mg/dL Calcium (8.4-10.2) mg/dL Magnesium (1.6-2.3) mg/dL Total Bilirubin (0.2-1.3) mg/dL AST (14-36) U/L ALT (4-34) U/L Alkaline Phosphatase (38-126) U/L Troponin I <0.012 (0.000-0.034) ng/mL NT-Pro-B Natriuret Pep pg/mL Total Protein (6.3-8.2) g/dL Albumin (3.5-5.0) g/dL Disposition Clinical Impression: Chest pain Disposition: ADMITTED IP TO THIS [facility] Is patient prescribed a controlled substance at d/c from ED?: No Referrals: Nicki Leonard FNPBC [Primary Care Provider] - 1-2 days Time of Disposition: 14:03
[2024-03-16] MEDS: NITROGLYCERIN SL TABS 0.4 MG TAB SUBLINGUAL STA ×3 (10:12→18:13)
[2024-03-16] MEDS: ONDANSETRON 4 MG/2 ML VIAL IVP STA ×2 (10:13→11:13)
[2024-03-16] MEDS: ASPIRIN 81 MG PO STA (10:14)
[2024-03-16] MEDS: FAMOTIDINE 20 MG/2 ML VIAL IV STA (10:14)
[2024-03-16 10:26] LABS: Basophils % (A) 1 %; Eosinophils # (A) 0.1 k/uL (0-0.7); Eosinophils % (A) 4 %; HCT 37.9 % (34.0-46.0); HGB 12.8 gm/dL (11.4-16.0); Lymphocytes # (A) 1.3 k/uL (1.0-4.8); Lymphocytes % (A) 41 %; MCH 29.7 pg (25.0-35.0); MCHC 33.7 g/dL (31.0-37.0); MCV 88.2 fL (80.0-100.0); Mean Platelet Volume 7.4; Monocytes # (A) 0.3 k/uL (0-1.0); Monocytes % (A) 9 %; Neutrophils # (A) 1.3 k/uL (1.3-7.7); Neutrophils % (A) 43 %; Platelet Count 276 k/uL (150-450); RBC 4.29 m/uL (3.80-5.40); RDW 13.4 % (11.5-15.5)
--- NOTE | 2024-03-16 10:43 | XR ---
Chest, 2 view. HISTORY: Chest pain COMPARISON: 03/08/2024 TECHNIQUE: PA and lateral views the chest are obtained. FINDINGS: The lungs are clear and there is no consolidative or interstitial opacity. There is no pleural effusion or pneumothorax. The heart, pulmonary vasculature, mediastinum and quinten appear normal. The osseous structures are intact. IMPRESSION: No significant abnormality seen. No acute cardiopulmonary disease. [facility], , 03/16/2024 10:41 AM
[2024-03-16 10:49] LABS: ALT 76 U/L (4-34); AST 109 U/L (14-36); African American GFR (CKD) >90 (>60 ml/min/1.73 sqM); Albumin 4.4 g/dL (3.5-5.0); Alkaline Phosphatase 69 U/L (38-126); Anion Gap 14 mmol/L; Blood Urea Nitrogen 8 mg/dL (7-17); Carbon Dioxide 22 mmol/L (22-30); Chloride 102 mmol/L (98-107); Glucose 62 mg/dL (74-99); Non-African American GFR(CKD) >90 (>60 ml/min/1.73 sqM); Potassium 4.4 mmol/L (3.5-5.1); Sodium 138 mmol/L (137-145); Total Bilirubin 0.5 mg/dL (0.2-1.3); Total Protein 6.8 g/dL (6.3-8.2)
[2024-03-16 10:56] LABS: NT-Pro-B-Type Natriuretic Pept 115 pg/mL
[2024-03-16] MEDS: MORPHINE SULFATE 4 MG/ML SYRINGE IVP STA (11:17)
[2024-03-16] MEDS: diphenhydrAMINE 50 MG/ML 1 ML VIAL IVP STA (12:00)
[2024-03-16 13:17] LABS: INR 0.9 (<1.2); Partial Thromboplastin Time 23.4 sec (22.0-30.0); Prothrombin Time 10.4 sec (10.0-12.5)
[2024-03-16] MEDS ORDERED: NITROGLYCERIN SL TABS 0.4 MG TAB SUBLINGUAL PRN (14:03)
[2024-03-16] MEDS: METOPROLOL SUCCINATE (ER) 25 MG TAB.ER.24H PO STA (14:29)
[2024-03-16] MEDS: amLODIPine 5 MG TAB PO STA (14:30)
[2024-03-16] MEDS: NITROGLYCERIN OINT 1 INCH/GM PACKET TOPICAL SCH (14:32)
--- NOTE | 2024-03-16 15:06 | P.HPIM ---
History of Present Illness H&P Date: 03/16/24 History of present illness: 48-year-old female with past medical history significant for seizure disorder, history of chronic back pain, asthma who presented to ER with a complaint of chest pain. Patient was recently admitted to the hospital for chest pain, underwent stress test which was negative. Also had CTA chest which was negative for any acute process including dissection or PE. Patient now presented again with left-sided chest pain, radiated to left shoulder, also complained of shortness of breath. Denied any cough, lower extremity edema, fever or chills. WBCs 3.0, hemoglobin 12.8, In the ED patient was afebrile, heart rate 83, respiratory rate 16, blood pressure 135/107, saturating 95% on room air. Platelet 276. CMP unremarkable except AST 109, ALT 76. Troponin negative. NT proBNP unremarkable. Chest x-ray negative for acute process. Assessment and plan: Chest pain: Presented with chest pain, troponin negative. EKG negative for acute process. Chest x-ray negative for acute process. Continue aspirin, nitroglycerin. Monitor with serial troponin EKG Cardiology consult CTA chest pending. Chronic back pain: Hypertension DVT prophylaxis Subcutaneous Lovenox Monitor vital signs and labs Labs and medication were reviewed. Continue same treatment. Further recommendations as per clinical course of the patient PHYSICAL EXAMINATION: GENERAL: The patient is A&O x3, NAD HEENT: EOMI, Sclerae anicteric, Moist Mucous membranes Neck: Supple, Non tender, No JVD PULMONARY: Equal breath souds B/L, No wheezing, No crackles. CARDIOVASCULAR: S1, S2 present. No murmurs, rubs, or gallops. ABDOMEN: Soft, nontender, nondistended, normoactive bowel sounds. No guarding or rebound tenderness. MUSCULOSKELETAL: No edema, No cyanosis. No clubbing. Normal ROM. Intact pal pheral pulses. NEUROLOGICAL: CN 2-12 grossly intact. No FND REVIEW OF SYSTEMS: CONSTITUTIONAL: No fever, no malaise, no fatigue. HEENT: No recent visual problems or hearing problems. Denied any sore throat. CARDIOVASCULAR: No chest pain, orthopnea, PND, no palpitations, no syncope. PULMONARY: No shortness of breath, no cough, no hemoptysis. GASTROINTESTINAL: No diarrhea, no nausea, no vomiting, no abdominal pain. NEUROLOGICAL: No headaches, no weakness, no numbness. HEMATOLOGICAL: Denies any bleeding or petechiae. GENITOURINARY: Denies any burning micturition, frequency, or urgency. MUSCULOSKELETAL/RHEUMATOLOGICAL: Denies any joint pain, swelling, or any muscle pain. ENDOCRINE: Denies any polyuria or polydipsia. The rest of the 14-point review of systems is negative. Dictation was produced using [employer] dictation software. please excuse any grammatical, word or spelling errors. Past Medical History Past Medical History: Asthma, Seizure Disorder Additional Past Medical History / Comment(s): seizure-like activity, no known 'actual' seizures, "blackouts", History of Any Multi-Drug Resistant Organisms: None Reported Past Surgical History: Hernia Repair, Orthopedic Surgery Additional Past Surgical History / Comment(s): bunion removed, left ankle, left toe, rotator cuff repair, right shoulder, Past Anesthesia/Blood Transfusion Reactions: No Reported Reaction Past Psychological History: No Psychological Hx Reported Smoking Status: Vaper Past Alcohol Use History: Occasional Past Drug Use History: None Reported - Past Family History Mother Family Medical History: CVA/TIA, Diabetes Mellitus, Hypertension, Renal Disease Father Family Medical History: Liver Disease Medications and Allergies Home Medications Medication Instructions Recorded Confirmed Type Ferrous Sulfate [Iron (65 MG 325 mg PO DAILY 02/06/24 03/08/24 History Elemental)] OXcarbazepine [Trileptal] 300 mg PO BID 02/06/24 03/08/24 History PARoxetine [Paxil] 10 mg PO DAILY 02/06/24 03/08/24 History Multivitamins, Thera [Multivitamin 1 tab PO DAILY 03/08/24 03/08/24 History (formulary)] Semaglutide [Wegovy] 0.5 mg SQ FR 03/08/24 03/08/24 History traMADol HCL 50 mg PO Q6H PRN 03/08/24 03/08/24 History Atorvastatin [Lipitor] 40 mg PO HS #30 tab 03/12/24 Rx LORazepam [Ativan] 0.5 mg PO HS 3 Days #2 tab 03/12/24 Rx Lidocaine 4% Patch 1 patch TOPICAL DAILY #3 patch 03/12/24 Rx Metoprolol Succinate (ER) [Toprol 12.5 mg PO DAILY #15 tab 03/12/24 Rx XL] Nicotine 14Mg/24Hr Patch [Habitrol] 1 patch TRANSDERM DAILY #3 patch 03/12/24 Rx amLODIPine [Norvasc] 5 mg PO DAILY #30 tab 03/12/24 Rx Allergies Allergy/AdvReac Type Severity Reaction Status Date / Time cat danbernie AdvReac Unknown Verified 03/16/24 09:38 mold AdvReac Dyspnea Verified 03/16/24 09:38 Physical Exam Vitals: Vital Signs Temp Pulse Resp BP Pulse Ox 03/16/24 12:56 83 16 135/107 95 03/16/24 11:58 77 17 145/105 95 03/16/24 11:11 80 15 144/100 96 03/16/24 10:25 97 18 132/91 96 03/16/24 10:11 141/111 03/16/24 09:57 132/100 03/16/24 09:38 98.1 F 98 20 130/86 98 Intake and Output 03/16/24 03/16/24 03/16/24 06:59 14:59 22:59 Other: Weight 81.193 kg Results CBC & Chem 7: 03/16/24 10:09 03/16/24 10:09 Labs: Abnormal Lab Results - Last 24 Hours (Table) 03/16/24 03/16/24 Range/Units 10:09 10:09 WBC 3.0 L (3.8-10.6) k/uL Glucose 62 L (74-99) mg/dL AST 109 H (14-36) U/L ALT 76 H (4-34) U/L
[2024-03-16] MEDS ORDERED: ACETAMINOPHEN TAB 500 MG TAB PO PRN (15:08)
[2024-03-16] MEDS: HYDROmorphone 0.5 MG/0.5 ML SYRINGE IVP PRN (15:16)
[2024-03-16] MEDS: OXcarbazepine 300 MG TAB PO SCH (15:31)
--- NOTE | 2024-03-16 16:48 | CT ---
EXAMINATION TYPE: CT angio chest DATE OF EXAM: 03/16/2024 3:11 PM COMPARISON: Chest radiograph from same day. Multiple CTs of the chest with most recent on . CLINICAL INDICATION: Female, 48 years old with history of eval aorta; CHEST PAIN TECHNIQUE/CONTRAST: CTA scan of the thorax is performed with IV Contrast, patient injected with 100 mL of Isovue 370, MIP images are created and reviewed these are created on a separate workstation.. CT DLP: 627.5 mGycm, Automated exposure control for dose reduction was used. FINDINGS: Pulmonary Artery: There is no evidence for a filling defect within the pulmonary vasculature to sugge st acute pulmonary embolism. The pulmonary artery is of normal size. Lungs/Pleura: No evidence of focal consolidation, pleural effusion or pneumothorax. Airway: Large airways are patent. Heart: Heart is within normal limits for size. Vasculature: No evidence of aortic aneurysm. Mediastinum: No gross evidence of adenopathy. Musculoskeletal: No acute osseous abnormalities Soft Tissues/lymph nodes: Unremarkable. Lower neck: No significant findings. Upper Abdomen: No significant acute findings. Previous Maria Ines-en-Y gastric bypass. Gallbladder surgical ly absent. Simple cysts in the partially visualized right kidney. IMPRESSION: No evidence of acute pulmonary embolism or acute pulmonary pathology. [facility], , 03/16/2024 4:45 PM
[2024-03-16 18:11] LABS: Glucose,Whole Blood 81 mg/dL (70-110)
[2024-03-16] MEDS: LORazepam 0.5 MG TAB PO SCH (21:02)
[2024-03-16] MEDS: ATORVASTATIN 40 MG TAB PO SCH (21:02)
[2024-03-16] MEDS: NICOTINE 14MG/24HR PATCH TRANSDERM SCH (21:02)
[2024-03-16] MEDS: ONDANSETRON 4 MG/2 ML VIAL IVP PRN (22:13)
[2024-03-17] MEDS: PARoxetine 10 MG TAB PO SCH (08:23)
[2024-03-17] MEDS: MULTIVITAMINS, THERA 1 EACH TAB PO SCH (08:23)
[2024-03-17] MEDS: amLODIPine 5 MG TAB PO SCH (08:23)
[2024-03-17] MEDS: METOPROLOL SUCCINATE (ER) 25 MG TAB.ER.24H PO SCH (08:23)
[2024-03-17] MEDS: FERROUS SULFATE 325 MG TAB PO SCH (08:23)
[2024-03-17] MEDS: ASPIRIN 325 MG TAB PO SCH (08:23)
[2024-03-17] MEDS: HYDROcodone/APAP 5-325MG 1 EACH TAB PO PRN (08:39)
[2024-03-17] MEDS: bisacodyL 5 MG TABLET.DR PO PRN (08:39)
[2024-03-17] MEDS ORDERED: ALPRAZolam 0.25 MG TAB PO PRN (10:14)
[2024-03-17] MEDS ORDERED: ALPRAZolam 0.5 MG TAB PO PRN (10:14)
[2024-03-17 11:02] LABS: Chol/HDL Ratio 2.85 Ratio; LDL Cholesterol,Calculated 58.9 mg/dL (0.0-131.0)
--- NOTE | 2024-03-17 11:22 | P.CRDCN ---
History of Present Illness Consult date: 03/17/24 Consult reason: chest pain History of present illness: This is a 48-year-old black female with past medical history of seizure disorder, chronic back pain. Patient was recently in the hospital on 03/10 underwent echocardiogram and Lexiscan Cardiolite stress test that were negative. She presented with high blood pressure which was addressed and patient was discharged home. She now presents with chest pain. She states that she was good after discharge for a couple of days just feeling drained and had a few aches but no significant chest pain. She states she was not able to eat very much. She did then develop chest pain and she broke into a sweat and was nauseated. Patient's highest blood pressure on admission was 144/100. Blood pr essure is now 117/80, heart rate in the 70s, pulse ox 99% on room air. No marijuana, alcohol or tobacco use, positive nicotine vaping. -EKG: Sinus rhythm with no acute ST changes. -Chest x-ray: No acute process. -CTA chest: No evidence of acute pulmonary embolism or acute pulmonary pathology. -Laboratory studies: WBC 3, hemoglobin 12.8, creatinine 0.76, troponin negative x 3. BNP 115. -Home cardiac medications: -Echocardiogram performed on 03/09/2024 revealed EF 55%, mild tricuspid regurgitation. -Lexiscan Cardiolite stress test performed on 03/12/2024 was negative. Review Of Systems: At the time of my exam: CONSTITUTIONAL: Denies fever or chills. HEENT: Denies blurred vision, vision changes, or eye pain. Denies hemoptysis CARDIOVASCULAR: Reports chest pain. Denies orthopnea. Denies PND. Denies palpitations RESPIRATORY: Denies shortness of breath. GASTROINTESTINAL: Denies abdominal pain. Denies nausea or vomiting. HEMATOLOGIC: Denies bleeding disorders. GENITOURINARY: Denies any blood in urine. SKIN: Denies puritis. Denies rash. Physical examination: Gen: This is a 48-year-old black female in no acute distress VS: reviewed HEENT: Head is atraumatic, normocephalic. Pupils equal, round. Sclerae is anicteric. NECK: Supple. No JVD. LUNGS: Clear to auscultation. No wheezes or rhonchi. No intercostal retractions. HEART: Regular rate and rhythm. No murmur. ABDOMEN: Soft No tenderness. EXTREMITIES: No pedal edema. No calf tenderness. NEUROLOGICAL: Patient is awake, alert and oriented x3. Assessment: Recurrent chest pain Hypertension Obesity on Mounjaro Chronic back pain Tobacco vaping Plan: Resume patient's home cardiac medications Schedule patient for cardiac catheterization tomorrow morning at [address] Johnson No need to repeat echocardiogram as this was done last week Further recommendations to follow based upon clinical course Thank you kindly for this consultation. Nurse practitioner note has been reviewed, I agree with documented findings and plan of care. Patient was seen and examined. Past Medical History Past Medical History: Asthma, Seizure Disorder Additional Past Medical History / Comment(s): seizure-like activity, no known 'actual' seizures, "blackouts", History of Any Multi-Drug Resistant Organisms: None Reported Past Surgical History: Hernia Repair, Orthopedic Surgery Additional Past Surgical History / Comment(s): bunion removed, left ankle, left toe, rotator cuff repair, right shoulder, Past Anesthesia/Blood Transfusion Reactions: No Reported Reaction Past Psychological History: No Psychological Hx Reported Smoking Status: Vaper Past Alcohol Use History: Occasional Additional Past Alcohol Use History / Comment(s): Quit cigaretts in 2022, vapes occasionally Past Drug Use History: None Reported - Past Family History Mother Family Medical History: CVA/TIA, Diabetes Mellitus, Hypertension, Renal Disease Father Family Medical History: Liver Disease Medications and Allergies Home Medications Medication Instructions Recorded Confirmed Type Ferrous Sulfate [Iron (65 MG 325 mg PO DAILY 02/06/24 03/16/24 History Elemental)] OXcarbazepine [Trileptal] 300 mg PO BID 02/06/24 03/16/24 History PARoxetine [Paxil] 10 mg PO DAILY 02/06/24 03/16/24 History Multivitamins, Thera [Multivitamin 1 tab PO DAILY 03/08/24 03/16/24 History (formulary)] Semaglutide [Wegovy] 0.5 mg SQ FR 03/08/24 03/16/24 History traMADol HCL 50 mg PO Q6H PRN 03/08/24 03/16/24 History Atorvastatin [Lipitor] 40 mg PO HS #30 tab 03/12/24 03/16/24 Rx Metoprolol Succinate (ER) [Toprol 12.5 mg PO DAILY #15 tab 03/12/24 03/16/24 Rx XL] Nicotine 14Mg/24Hr Patch [Habitrol] 1 patch TRANSDERM DAILY #3 patch 03/12/24 03/16/24 Rx amLODIPine [Norvasc] 5 mg PO DAILY #30 tab 03/12/24 03/16/24 Rx Allergies Allergy/AdvReac Type Severity Reaction Status Date / Time cat dander AdvReac Unknown Verified 03/16/24 17:15 mold AdvReac Dyspnea Verified 03/16/24 17:15 Physical Exam Vitals: Vital Signs Temp Pulse Pulse Resp BP BP Pulse Ox 03/17/24 07:00 97.7 F 71 15 117/80 99 03/17/24 01:53 97.6 F 72 17 118/81 99 03/16/24 21:11 98.5 F 75 17 131/92 99 03/16/24 18:09 98.0 F 74 14 131/89 100 03/16/24 17:41 97.9 F 73 17 116/81 93 L 03/16/24 17:13 17 03/16/24 15:11 97.7 F 76 17 147/95 96 03/16/24 12:56 83 16 135/107 95 03/16/24 11:58 77 17 145/105 95 03/16/24 11:11 80 15 144/100 96 03/16/24 10:25 97 18 132/91 96 03/16/24 10:11 141/111 Intake and Output 03/16/24 03/17/24 03/17/24 22:59 06:59 14:59 Other: # Voids 1 2 Weight 81.193 kg Results 03/16/24 10:09 03/16/24 10:09 Cardiac Enzymes 03/16/24 03/16/24 03/16/24 Range/Units 10:09 10:09 15:02 AST 109 H (14-36) U/L Troponin I <0.012 <0.012 (0.000-0.034) ng/mL 03/16/24 Range/Units 18:20 AST (14-36) U/L Troponin I 0.015 (0.000-0.034) ng/mL Coagulation 03/16/24 Range/Units 10:09 PT 10.4 (10.0-12.5) sec APTT 23.4 (22.0-30.0) sec CBC 03/16/24 Range/Units 10:09 WBC 3.0 L (3.8-10.6) k/uL RBC 4.29 (3.80-5.40) m/uL Hgb 12.8 (11.4-16.0) gm/dL Hct 37.9 (34.0-46.0) % Plt Count 276 (150-450) k/uL Comprehensive Metabolic Panel 03/16/24 Range/Units 10:09 Sodium 138 (137-145) mmol/L Potassium 4.4 (3.5-5.1) mmol/L Chloride 102 (98-107) mmol/L Carbon Dioxide 22 (22-30) mmol/L BUN 8 (7-17) mg/dL Creatinine 0.76 (0.52-1.04) mg/dL Glucose 62 L (74-99) mg/dL Calcium 9.0 (8.4-10.2) mg/dL AST 109 H (14-36) U/L ALT 76 H (4-34) U/L Alkaline Phosphatase 69 (38-126) U/L Total Protein 6.8 (6.3-8.2) g/dL Albumin 4.4 (3.5-5.0) g/dL Current Medications Generic Name Dose Route Start Last Admin Trade Name Freq PRN Reason Stop Dose Admin Acetaminophen 500 mg 03/16/24 15:08 Acetaminophen Tab 500 Mg Tab PO Q6HR PRN Fever and/ or Mild Pain Hydrocodone Bitart/Acetaminophen 1 each 03/16/24 15:08 03/17/24 08:39 Hydrocodone/Apap 5-325mg 1 Each Tab PO 1 each Q6HR PRN Administration Severe Pain (Scale 7 to 10) Amlodipine Besylate 5 mg 03/17/24 09:00 03/17/24 08:23 Amlodipine 5 Mg Tab PO 5 mg DAILY DENI Administration Aspirin 325 mg 03/17/24 09:00 03/17/24 08:23 Aspirin 325 Mg Tab PO 325 mg DAILY DENI Administration Atorvastatin Calcium 40 mg 03/16/24 21:00 03/16/24 21:02 Atorvastatin 40 Mg Tab PO 40 mg HS DENI Administration Bisacodyl 10 mg 03/17/24 07:17 03/17/24 08:39 Bisacodyl 5 Mg Tablet.Dr PO 10 mg DAILY PRN Administration Constipation Ferrous Sulfate 325 mg 03/17/24 09:00 03/17/24 08:23 Ferrous Sulfate 325 Mg Tab PO 325 mg DAILY DENI Administration Hydromorphone HCl 0.5 mg 03/16/24 15:08 03/17/24 04:22 Hydromorphone 0.5 Mg/0.5 Ml Syringe IVP 0.5 mg Q6HR PRN Administration Severe Breakthrough Pain Lorazepam 0.5 mg 03/16/24 21:00 03/16/24 21:02 Lorazepam 0.5 Mg Tab PO 0.5 mg HS DENI Administration Metoprolol Succinate 12.5 mg 03/17/24 09:00 03/17/24 08:23 Metoprolol Succinate (Er) 25 Mg Tab.Er.24h PO 12.5 mg DAILY DENI Administration Multivitamins 1 each 03/17/24 09:00 03/17/24 08:23 Multivitamins, Thera 1 Each Tab PO 1 each DAILY DENI Administration Nicotine 1 patch 03/16/24 19:00 03/17/24 08:23 Nicotine 14mg/24hr Patch TRANSDERM 1 patch DAILY COUNTS INCLUDE 234 BEDS AT THE [facility] Administration Nitroglycerin 0.4 mg 03/16/24 14:03 Nitroglycerin Sl Tabs 0.4 Mg Tab SUBLINGUAL Q5M PRN Chest Pain Nitroglycerin 1 inch 03/16/24 15:00 03/17/24 05:07 Nitroglycerin Oint 1 Inch/Gm Packet TOPICAL Not Given Q6HR COUNTS INCLUDE 234 BEDS AT THE [facility] Ondansetron HCl 4 mg 03/16/24 21:09 03/17/24 04:22 Ondansetron 4 Mg/2 Ml Vial IVP 4 mg Q6HR PRN Administration Nausea And Vomiting Oxcarbazepine 300 mg 03/16/24 15:10 03/17/24 08:23 Oxcarbazepine 300 Mg Tab PO 300 mg BID DENI Administration Paroxetine HCl 10 mg 03/17/24 09:00 03/17/24 08:23 Paroxetine 10 Mg Tab PO 10 mg DAILY DENI Administration Tramadol HCl 50 mg 03/16/24 18:51 Tramadol 50 Mg Tab PO Q6H PRN Moderate Pain (Scale 4 to 6) Intake and Output 03/16/24 03/17/24 03/17/24 22:59 06:59 14:59 Other: # Voids 1 2 Weight 81.193 kg 03/16/24 10:09 03/16/24 10:09
[2024-03-17] MEDS: SODIUM CHLORIDE 0.9% 1,000 ML IV SCH (12:08)
--- NOTE | 2024-03-17 15:12 | P.PN ---
Subjective Progress Note Date: 03/17/24 Interval History: 48-year-old female with past medical history significant for seizure disorder, history of chronic back pain, asthma who presented to ER with a complaint of chest pain. Patient was recently admitted to the hospital for chest pain, underwent stress test which was negative. Also had CTA chest which was negative for any acute process including dissection or PE. Patient now presented again with left-sided chest pain, radiated to left shoulder, also complained of shortness of breath. Denied any cough, lower extremity edema, fever or chills. WBCs 3.0, hemoglobin 12.8, In the ED patient was afebrile, heart rate 83, respiratory rate 16, blood pressure 135/107, saturating 95% on room air. Platelet 276. CMP unremarkable except AST 109, ALT 76. Troponin negative. NT proBNP unremarkable. Chest x-ray negative for acute process. 03/17--- patient was seen and examined today. Continues complain of left-sided chest pain which is constant. CT angio chest yesterday negative for acute process including PE or dissection. Cardiology following, plan for cardiac catheterization tomorrow. Patient patient continued to ask for specifically Dilaudid also asked for Benadryl. Safe opioid use discussed with the patient. Assessment and plan: Chest pain: Presented with chest pain, troponin negative. EKG negative for acute process. Chest x-ray negative for acute process. Continue aspirin, nitroglycerin. Monitor with serial troponin EKG Cardiology consult CTA chest negative for PE or dissection. Cardiology planning for cardiac catheterization 03/18. Chronic back pain: Hypertension: DVT prophylaxis Subcutaneous Lovenox Monitor vital signs and labs Labs and medication were reviewed. Continue same treatment. Further recommendations as per clinical course of the patient PHYSICAL EXAMINATION: GENERAL: The patient is A&O x3, NAD HEENT: EOMI, Sclerae anicteric, Moist Mucous membranes Neck: Supple, Non tender, No JVD PULMONARY: Equal breath souds B/L, No wheezing, No crackles. CARDIOVASCULAR: S1, S2 present. No murmurs, rubs, or gallops. ABDOMEN: Soft, nontender, nondistended, normoactive bowel sounds. No guarding or rebound tenderness. MUSCULOSKELETAL: No edema, No cyanosis. No clubbing. Normal ROM. Intact peripheral pulses. NEUROLOGICAL: CN 2-12 grossly intact. No FND Skin: No Rash REVIEW OF SYSTEMS: CONSTITUTIONAL: No fever or chills. CARDIOVASCULAR: No chest pain, palpitations or syncope. PULMONARY: No shortness of breath, no cough, sore throat. GASTROINTESTINAL: No nausea, vomiting, diarrhea, abdominal pain. : No Dysuria, urgency, frequency. Extremities: No edema. NEUROLOGICAL: No headaches, no weakness, or numbness Dictation was produced using [employer] dictation software. please excuse any grammatical, word or spelling errors. Objective - Vital Signs Vital signs: Vital Signs Temp 97.7 F 03/17/24 07:00 Pulse 71 03/17/24 07:00 Resp 15 03/17/24 07:00 BP 117/80 03/17/24 07:00 Pulse Ox 99 03/17/24 07:00 FiO2 Intake & Output 03/16/24 03/17/24 03/17/24 18:59 06:59 18:59 Weight 81.193 kg Other: # Voids 2 - Labs CBC & Chem 7: 03/16/24 10:09 03/16/24 10:09 Labs: Abnormal Lab Results - Last 24 Hours (Table) 03/16/24 Range/Units 10:09 Triglycerides 212.00 H (0.00-149.00) mg/dL VLDL Cholesterol, Calc 42.40 H (5.00-40.00) mg/dL
[2024-03-17] MEDS: diphenhydrAMINE 2% CREAM 28.4 GM TUBE TOPICAL PRN (16:00)
[2024-03-18 05:44] LABS: Glucose,Whole Blood 85 mg/dL (70-110)
[2024-03-18] MEDS: ATORVASTATIN 80 MG TAB PO ONE (05:47)
[2024-03-18] MEDS: ASPIRIN 325 MG TAB PO ONE (05:47)
--- NOTE | 2024-03-18 10:44 | P.PN ---
Subjective This is a 48-year-old black female with past medical history of seizure disorder, chronic back pain. Patient was recently in the hospital on 03/10 u nderwent echocardiogram and Lexiscan Cardiolite stress test that were negative. She presented with high blood pressure which was addressed and patient was discharged home. She now presents with chest pain. She states that she was good after discharge for a couple of days just feeling drained and had a few aches but no significant chest pain. She states she was not able to eat very much. She did then develop chest pain and she broke into a sweat and was nauseated. Patient's highest blood pressure on admission was 144/100. Blood pressure is now 117/80, heart rate in the 70s, pulse ox 99% on room air. No marijuana, alcohol or tobacco use, positive nicotine vaping. -EKG: Sinus rhythm with no acute ST changes. -Chest x-ray: No acute process. -CTA chest: No evidence of acute pulmonary embolism or acute pulmonary pathology. -Laboratory studies: WBC 3, hemoglobin 12.8, creatinine 0.76, troponin negative x 3. BNP 115. -Home cardiac medications: -Echocardiogram performed on 03/09/2024 revealed EF 55%, mild tricuspid regurgitation. -Lexiscan Cardiolite stress test performed on 03/12/2024 was negative. 03/18/2024 Pt going for cath later today with Dr. Johnson. Blood pressure 106/72 heart rate 72 afebrile maintaining oxygen saturation on room air. Physical examination: Gen: This is a 48-year-old black female in no acute distress VS: reviewed HEENT: Head is atraumatic, normocephalic. Pupils equal, round. Sclerae is anicteric. NECK: Supple. No JVD. LUNGS: Clear to auscultation. No wheezes or rhonchi. No intercostal retractions. HEART: Regular rate and rhythm. No murmur. ABDOMEN: Soft No tenderness. EXTREMITIES: No pedal edema. No calf tenderness. NEUROLOGICAL: Patient is awake, alert and oriented x3. Assessment: Recurrent chest pain Hypertension Obesity on Mounjaro Chronic back pain Tobacco vaping Plan: Catheterization today with Dr. Johnson. Further recommendations to follow based upon clinical course. Nurse practitioner note has been reviewed, I agree with documented findings and plan of care. Patient was seen and examined. Objective - Vital Signs Vital signs: Vital Signs Temp 97.8 F 03/18/24 07:00 Pulse 72 03/18/24 07:00 Resp 17 03/18/24 07:00 BP 106/72 03/18/24 07:00 Pulse Ox 100 03/18/24 07:00 FiO2 Intake & Output 03/17/24 03/18/24 03/18/24 18:59 06:59 18:59 Intake Total 1252 Balance 1252 Intake: Oral 1252 Other: # Voids 3 2 - Labs CBC & Chem 7: 03/16/24 10:09 03/16/24 10:09 Labs: Abnormal Lab Results - Last 24 Hours (Table) 03/16/24 Range/Units 10:09 Triglycerides 212.00 H (0.00-149.00) mg/dL VLDL Cholesterol, Calc 42.40 H (5.00-40.00) mg/dL
[2024-03-18 14:24] VITALS: TEMP 97.9
[2024-03-18] MEDS: fentaNYL (PF) 50 MCG/ML 2 ML AMP IVP ONE (14:53)
[2024-03-18] MEDS: MIDAZOLAM 2 MG/2 ML VIAL IVP ONE (14:53)
[2024-03-18] MEDS: LIDOCAINE 1% INJ 10MG/ML (20 ML MDV) SQ ONE (14:55)
[2024-03-18] MEDS: IV FLUID CONTINUATION 1,000 ML IV ONE (14:59)
[2024-03-18] MEDS: VERAPAMIL SYRINGE (5 MG/10 ML) INTRAARTER ONE (14:59)
[2024-03-18] MEDS: HEPARIN SODIUM,PORCINE 10,000 UNIT in SODIUM CHLORIDE 0.9% 1,000 ML IRRIGATION PRN (15:00)
[2024-03-18] MEDS: HEPARIN SODIUM,PORCINE (1 ML) 2,500 UNIT in SODIUM CHLORIDE 0.9% 250 ML IRRIGATION PRN (15:00)
[2024-03-18] MEDS: HEPARIN SODIUM 1,000 UN/ML (10ML VL) IV ONE (15:02)
[2024-03-18] MEDS: IOPAMIDOL-370 100ML BTL INJ ONE (15:11)
[2024-03-18] MEDS ORDERED: RX INFO: IV CONTRAST WAS GIVEN 1 EACH MISC MISCELLANE PRN (15:24)
--- NOTE | 2024-03-18 15:24 | P.CARDCATH ---
Date of Procedure: 03/18/24 Description of Procedure: DIAGNOSTIC CORONARY ANGIOGRAPHY and LEFT HEART CATH REPORT PROCEDURES PERFORMED: Left heart catheterization Selective coronary angiography Moderate conscious sedation 17 mins [Ultrasound assisted] Right radial access INDICATION: Unstable angina BRIEF HPI: 48-year-old female with past medical history of hypertension, obesity presented initially because of substernal chest pressure-like symptoms. Previously she had a Lexiscan nuclear stress test which was not suggestive of an y ischemia or infarct. She was eventually discharged home with optimization of antihypertensive medications. Post discharge patient continued to have substernal chest pressure-like symptoms along with associated dry heaving and shortness of breath and some numbness in the left upper extremity. Due to this she presented to the hospital again. Due to ongoing symptoms of substernal chest pressure with no other obvious etiology to explain this, she was ruled out as unstable angina and was scheduled for a heart catheterization procedure. CONSENT: I have explained the procedural steps of above-mentioned procedures in layman's terms to the patient. I discussed the risks (including but not limited to stroke, emergent vascular or cardiac surgery or ), benefits and alternative therapies for the above-mentioned procedure. I discussed the risks of sedation/analgesia and blood product administration (if indicated). The patient has indicated understanding and acceptance of these risks. Conscious Sedation: Patient's ECG, heart rate, blood pressure, pulse oximetry were monitored throughout the duration of procedure under my direct supervision. 1 mg Versed and 50 mcg Fentanyl were used for induction of moderate conscious sedation. Total duration of moderate concious sedation 17 minutes. PROCEDURAL DETAILS: Patient was prepped and draped in sterile fashion. 1% lidocaine was infiltrated over the right radial artery. Right radial access was obtained via modified seldinger technique. [Ultrasound was used for radial access]. Medications: 5mg of verapamil was administed in the radial sheet. 5000 Units of Heparin was administed once the catheter reached the aortic root Wires and Catheter used: J wire was advanced under fluroscopy to get to aortic root, JL 3.5 to selectively engage the left coronary ostium. JR4 to selectively engage the right coronary ostium. JR 4 catheter was used to obtain left ventricular pressure and pressure gradint across aortic valve. Angiographic images were reviewed in detail. Catheter and wire were removed. Radial sheet was flushed. The right radial sheath was removed and a TR band was placed. Patent hemostasis was achieved. The patient tolerated the procedure well. Patient was transported back to the post catheterization holding area in stable condition. TECHNICAL DETAILS Total radiation: 67.6 mGy Total fluro time: 1.7 minutes Total contrast used: Isovue 55 mL Complications: [none] Estimated Blood loss: less than 15 ml HEMODYNAMICS: Aortic Pressure: 120/80 mmHg. LV pressure: 120/1 mmHg. LVEDP 11 mmHg. There was no significant gradient across the aortic valve. SELECTIVE CORONARY ARTERIOGRAPHY: LEFT MAIN: The left main is short and large caliber vessel. It triifurcates into the LAD, Ramus and circumflex. Left main appears angiographically normal. LEFT ANTERIOR DESCENDING CORONARY ARTERY: LAD is a large caliber vessel which wraps around to the apex. Proximal mid and distal LAD appears angiographically patent. It gives rise to a small caliber diagonal 1 and small caliber diagonal 2 which appears angiographically patent. RAMUS: Medium caliber reaches up to the distal lateral wall. It appears angiographically patent. LEFT CIRCUMFLEX CORONARY ARTERY: It is dominant vessel. Left circumflex is a large caliber vessel. It appears angiographically normal. It gives rise to a large branch and small PDA and PL branches which appears angiographically patent. RIGHT CORONARY ARTERY: Non dominant vessel. RCA small caliber vessel around 2.5 mm and appears angiographically normal. IMPRESSION: Angiographically normal coronary arteries as described above. Normal left sided filling pressures PLAN: Aggressive risk factor modification per most recent ACC/AHA guidelines. 120 cc fluids for 4 hours Discharge home in 4 hours Follow-up in the office in 1-2 weeks. Performing Physician Jose Johnson MD, FACC, RPVI Thank you for allowing [facility] to participate in this patient's care. Feel free to reach out in case of any followup questions.
--- NOTE | 2024-03-18 15:27 | P.EN ---
Patient's chest pain seems to be not related to coronary artery disease. Patient is cleared from cardiovascular standpoint at this time. I would recommend optimization and monitoring of her blood pressure. I would recommend her to follow-up with me on outpatient basis in cardiology office. Patient is on GLP analogs for weight management. This could contribute to patient's symptoms of dry heaving and other GI symptoms. I would request primary team and primary care physician to evaluate for this.
[2024-03-18] MEDS: SODIUM CHLORIDE 0.9% 1,000 ML IV SCH (15:28)
[2024-03-18 16:17] VITALS: RESP 14
[2024-03-18 18:26] VITALS: PULSE 78
[2024-03-18] MEDS: traMADol 50 MG TAB PO PRN (19:43)
[2024-03-18 19:50] VITALS: BP 113/84
[2024-03-19] MEDS ORDERED: ASPIRIN 81 MG PO SCH (09:00)
== END 2024-03-18 20:06 | disposition home or self-care (01) | DRG 192 ==
LOC: EC 09:33 → 6NMEDSUR 14:04 → OBSVTOIN 14:05 → 6NMEDSUR 17:03
PROVIDERS: ADMIT Internal Medicine; ATTEND Internal Medicine
PROC: B2111ZZ Fluoroscopy of Multiple Coronary Arteries using Low Osmolar Contrast (ICD-10-PCS; 2024-03-18)
PROC: 4A023N7 Measurement of Cardiac Sampling and Pressure, Left Heart, Percutaneous Approach (ICD-10-PCS; principal; 2024-03-18 12:20)
DX: R07.89 Other chest pain (principal); E66.9 Obesity, unspecified; G40.909 Epilepsy, unspecified, not intractable, without status epilepticus; G89.29 Other chronic pain; I10 Essential (primary) hypertension; I07.1 Rheumatic tricuspid insufficiency; J45.909 Unspecified asthma, uncomplicated; Z79.899 Other long term (current) drug therapy; Z82.49 Family history of ischemic heart disease and other diseases of the circulatory system; M54.9 Dorsalgia, unspecified; Z68.29 Body mass index [BMI] 29.0-29.9, adult; Z87.19 Personal history of other diseases of the digestive system
CPT/HCPCS: 36415; 71046; 71275; 80053; 80061; 83735; 83880; 84484; 85025; 85379; 85610; 85730; 93005; 93458; 96361; 96374; 96375; 99285

== ENCOUNTER 2024-08-16 06:10 | Day surgery (SDC) | payer OTHER ==
[2024-08-15 14:16] VITALS: BMI 28.3
[2024-08-16] MEDS ORDERED: HYDROmorphone 0.5 MG/0.5 ML SYRINGE IVP PRN (07:00)
[2024-08-16 07:25] LABS: Glucose,Whole Blood 78 mg/dL (70-110)
[2024-08-16] MEDS: LACTATED RINGERS 1,000 ML IV SCH (07:25)
[2024-08-16] MEDS: IV FLUID CONTINUATION 1,000 ML IV ONE (07:25)
[2024-08-16] MEDS: DEXAMETHASONE SOD PHOSPHATE 4 MG/ML 1 ML VIAL IV ONE (07:36)
[2024-08-16] MEDS: ONDANSETRON 4 MG/2 ML VIAL IVP ONE (07:36)
[2024-08-16] MEDS: fentaNYL (PF) 50 MCG/ML 2 ML AMP IVP PRN (08:20)
[2024-08-16] MEDS: MIDAZOLAM 2 MG/2 ML VIAL IV ONE (08:25)
[2024-08-16] MEDS ORDERED: LIDOCAINE 1% INJ 10MG/ML (20 ML MDV) ONE (08:28)
[2024-08-16] MEDS ORDERED: ROPIVACAINE 5 MG/ML 30 ML VIAL ONE (08:28)
[2024-08-16] MEDS ORDERED: PROPOFOL 10 MG/ML 20 ML VIAL IV ONE (08:28)
[2024-08-16] MEDS ORDERED: PHENYLEPHRINE-0.9% NACL SYG 1,000 MCG/10 ML SYRINGE ONE (08:28)
[2024-08-16] MEDS ORDERED: SODIUM CHLORIDE 0.9% (PF) 10 ML VIAL ONE (08:28)
[2024-08-16] MEDS ORDERED: SUCCINYLCHOLINE CHLORIDE 200 MG/10 ML VIAL IV ONE (08:28)
[2024-08-16] MEDS ORDERED: LIDOCAINE 4% LTA KIT (4 ML) TOPICAL ONE (08:28)
[2024-08-16] MEDS: ceFAZolin 1,000 MG in SODIUM CHLORIDE 0.9% 1,000 ML IRRIGATION ONE (08:34)
[2024-08-16] MEDS: LACTATED RINGERS 1,000 ML IV ONE (09:26)
--- NOTE | 2024-08-16 10:07 | P.OP ---
Date of Procedure: 08/16/24 Preoperative Diagnosis: 1. Hallux rigidus right foot 2. Primary osteoarthritis right midfoot Postoperative Diagnosis: 1. Same 2. Same Procedure(s) Performed: 1. First metatarsal phalangeal joint arthrodesis right foot 2. Transection of deep peroneal nerve right foot Implants: Arthrex 3.5 mm beveled head screws x 2 Burke Augment Anesthesia: RUSHA Surgeon: Wisam Cates Estimated Blood Loss (ml): 3 Pathology: none sent Condition: stable Disposition: PACU Description of Procedure: Prior to the patient being brought to the op room, anesthesia administered nerve block on the right lower extremity. Patient was brought into the op room placed on table in supine position. Timeout was taken to confirm correct patient identifiers, correct laterality of surgery, and correct procedure. Once all staff in the room was in agreement the timeout, the patient was induced and placed under general anesthesia. A well-padded tourniquet was placed on the right calf and then the right foot was prepped and draped usual manner. The right foot was exsanguinated and the tourniquet plated 250 mmHg. Under direct fluoroscopic visualization, an area was marked on the medial side of the first metatarsal phalangeal joint for entry into the joint. This was repeated on the dorsal lateral aspect of the same joint. The incision was deepened down to the capsule and then a capsular incision was made an elevator was inserted into soft tissue away from the bony surfaces. Utilizing a small sidecutting bur, initial cartilage debridement was performed from medial to lateral. The larger bone bur was then inserted and used to finish the joint pr epping and even out the surfaces. Once completed the area was thoroughly irrigated to remove any of the bony material. Then the joint was reduced to make sure there was good bony contact and that there was good position of the great toe. Once that was determined the area was again irrigated thoroughly with saline and the area suctioned to remove any of the bone paste out and then 1.5 cc of augment was injected directly into the arthrodesis site. With the toe held in alignment wires for the 3.5 mm beveled screws were inserted across the arthrodesis site the first screw was from distal medial and the screw was directed proximal lateral, dorsal to the medial midline. Discussed can screw was proximal medial and advanced distal lateral, and plantar to the midline of the first metatarsal. Fluoroscopic imaging showed proper placement of the wires on AP and lateral views. Drilling of the more distal wire was done first. The screw was inserted and advanced until the bevel was flush with the medial surface of the proximal phalanx and there was good bony purchase. The same technique was utilized in the more proximal wire. Final fluoroscopic imaging showed good bony contact at the fusion site. Hardware was properly positioned. Great toe alignment was acceptable. The wound was irrigated with normal saline. All incisions were closed with 3-0 nylon. Then attention was directed the dorsal midfoot for the deep peroneal nerve transection. In the preoperative area we had marked the location of the dorsalis pedis pulse. This indicated the approximate location of the peroneal nerve. The incision was made over this area. It was carefully dissected down to the subcutaneous layer To identify, void, and retracting neurovascular structures and cauterize any bleeding vessels. Branches of the intermediate dorsal cutaneous nerve were identified and carefully retracted laterally. The deep fascia was then incised to expose the neurovascular bundle between the tibialis anterior and the extensor hallucis longus tendons. Careful dissection was carried down to the neurovascular bundle. The tourniquet was released to allow identification of the dorsalis pedis artery. The deep peroneal nerve was lateral to this area and had a distinct color compared to the vascular structures. The nerve was isolated and transected. The distal line was tagged with 4-0 Monocryl. That distal end was then sewn into the muscle belly of the extensor digitorum brevis that was in close proximity. The wound was then thoroughly irrigated with antibiotic saline. Subcutaneous closure done with 4-0 Monocryl. Skin closure done with 4-0 Stratafix in a running subcuticular manner. Dermal glue and Steri-Strips were placed over the proximal incision. All incisions were covered with Arthrex jumpstart. A dry sterile dressing was applied to the foot. Patient is placed in a well-padded, well molded plaster posterior mold/sugar-tong splint. The ankle and foot held in neutral position until the splint was dried. Then anesthesia was reversed and the patient was taken recovery vital signs stable
[2024-08-16 10:47] VITALS: TEMP 97.5
[2024-08-16] MEDS: hydrALAZINE HCL 20 MG/ML 1 ML VIAL IVP PRN (11:03)
[2024-08-16 11:06] VITALS: RESP 16
[2024-08-16 11:57] VITALS: BP 140/94; PULSE 72
--- NOTE | 2024-08-16 14:17 | P.ANPRN ---
Procedure Note - Anesthesia - Nerve Block Performed Right Popliteal Single Time Out Performed: Yes (0815) Date of Procedure: 08/16/24 Procedure Start Time: 08:16 Procedure Stop Time: 08:20 Location of Patient: PreOp Indication: Acute Post-Operative Pain, Requested by Surgeon Specifically requested for management of pain by DrJuan Carlos: Wisam Cates Sedation Type: Sedate with meaningful contact maintained Preparation: Sterile Prep Position: Left Lateral Catheter: None Needle Types: Pajunk Needle Gauge: 21 Ultrasound used to visualize needle placement: Yes Ultrasound used to observe medication spread: Yes Injectate: 0.5% Ropivacaine (see comment for volume) (15CC+DECADRON 4MG+NACL PF 10CC) Blood Aspirated: No Pain Paresthesia on Injection Noted: No Resistance on Injection: Normal Image Stored and Saved: Yes Events: Uneventful and Well Tolerated
--- NOTE | 2024-08-16 14:18 | P.ANPRN ---
Procedure Note - Anesthesia - Nerve Block Performed Right Adductor Canal Single Time Out Performed: Yes (0815) Date of Procedure: 08/16/24 Procedure Start Time: Procedure Stop Time: Location of Patient: PreOp Indication: Acute Post-Operative Pain, Requested by Surgeon Specifically requested for management of pain by DrJuan Carlos: Wisam Cates Sedation Type: Sedate with meaningful contact maintained Preparation: Sterile Prep Position: Supine Catheter: None Needle Types: Pajunk Needle Gauge: 21 Ultrasound used to visualize needle placement: Yes Ultrasound used to observe medication spread: Yes Injectate: 0.5% Ropivacaine (see comment for volume) (15CC+DECADRON 4MG+NACL PF 10CC) Blood Aspirated: No Pain Paresthesia on Injection Noted: No Resistance on Injection: Normal Image Stored and Saved: Yes Events: Uneventful and Well Tolerated
== END 2024-08-16 12:41 | disposition home or self-care (01) ==
LOC: OR 06:10
PROVIDERS: ATTEND Podiatrist
DX: M20.21 Hallux rigidus, right foot (principal); M20.11 Hallux valgus (acquired), right foot; M19.071 Primary osteoarthritis, right ankle and foot; G89.18 Other acute postprocedural pain; I25.10 Atherosclerotic heart disease of native coronary artery without angina pectoris; J45.909 Unspecified asthma, uncomplicated; K21.9 Gastro-esophageal reflux disease without esophagitis; Z86.69 Personal history of other diseases of the nervous system and sense organs; Z79.899 Other long term (current) drug therapy; Z98.890 Other specified postprocedural states
CPT/HCPCS: 28750; 64447; 81025; 64445; 64772; C1713 ×2; J2250; J0330; J0360; J1100; J0690 ×2; J2405; J2003; J3010; J2795; J2704; J2371